=== PATIENT | female | born 1990 | race Caucasian/White ===

== ENCOUNTER 2024-09-10 08:15 | Outpatient (RCR) | payer OTHER, SELFPAY ==
[2024-08-22 10:50] VITALS: BMI 34.1
[2024-09-10 08:15] VITALS: BMI 34.1
== END 2024-11-12 07:54 | disposition home or self-care (01) ==
LOC: ANHDMC 08:15
PROVIDERS: PCP Physician Assistant; Visit Provider Obstetrics & Gynecology
DX: O24.319 Unspecified pre-existing diabetes mellitus in pregnancy, unspecified trimester (principal); Z71.3 Dietary counseling and surveillance
CPT/HCPCS: 97802; 97803

== ENCOUNTER 2024-09-23 10:22 | Outpatient (CLI) | payer OTHER, SELFPAY ==
[2024-09-23] VITALS (53 sets, daily range): BP systolic 135–169; BP diastolic 76–97; PULSE 52–101; RESP 20; TEMP 36.5; O2SAT 90–100; BMI 33.8
--- OUTSIDE RECORDS SUMMARY | 2024-09-23 11:30 | XMS_ITS | Encounter Summary ---
Author Organization [facility] Address [address] [place] [address] Phone Care Team Providers Care Packager Head Name Role Phone GabrielaInes ang MAXIMO Unavailable [phone] Ines Frazier Primary Care Provider + Reason for Visit * Reason Comments Medication Refill Encounter Details Date Type Department Care Team (Late Contact Info) Description 04/27/2023 Refill [facility] - [facility] [address] [place] [address] Florence Jim APRN, METAL FURNITURE PANEL COVERER [address] [address] Medication Refill Social History Tobacco Use Types Packs/Day Years Used Date Smoking Tobacco: Never Smokeless Tobacco: Never Alcohol Use Standard Drinks/Week Comments Yes 0 (1 standard drink = 0.6 oz pur e alcohol) 2-3 times a week PHQ-2 Answer Date Recorded Total Score - Questions 1-9 16 11/2022 Education Answer Date Recorded What is the highest level of school you have completed or the highest degree you have received? 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 Requested Prescriptions Pending Prescriptions Disp Refills FLUoxetine (PROzac) 10 MG Capsule [Pharmacy Med Name: FLUoxetine HCl 10 MG Oral Capsule] 30 [id number] Sig: Take 1 Capsule by mouth daily. SSRI (6 Month Refill Only) Protocol Failed - 04/27/2023 6:33 AM Failed - Patient has established therapy with SSRI for at least 6 months Passed - No test in the past 12 months or most recent test was negative Passed - No active on record Passed - Visit with relevant provider in past 6 months or upcoming 90 days Recent Visits Date Type Provider Dept 04/19/23 Office Visit Izzy Coker APRN, METAL FURNITURE PANEL COVERER [facility] 03/08/23 Office Visit Izzy Coker APRN, METAL FURNITURE PANEL COVERER [facility] Showing recent visits within past 182 days and meeting all other requirements Future Appointments Date Type Provider Dept 06/16/23 Appointment Ines Frazier, PAC [facility] Showing future appointments within next 90 days and meeting all other requirements Passed - Has an encounter in the past 6 months with a depression, anxiety, adjustment disorder, OCD, or PTSD visit diagnosis ING PIT OPERATOR documented in this encounter Plan of Treatment Not on file documented as of this encounter Goals Goal Patient Goal Type Associated Problems Recent Progress Patient-Stated? Author I want to know how to manage all this. Behavioral Health On track( 024 5:10 PM CDT) Yes Brittani Rodriguez LCSW Note: Goal/Objective: Reduce the distress related to trauma being. Anticipated Time Frame for Goal Completion: 6 months Goal Reviewed with: patient Readiness to change: Ready to change Department associated with goal: [facility] Steps to achieve goal: will share personal trauma story in counseling/psychotherapy sessions. will learn/identify how trauma has impacted personal life, physical health and behavioral health. will identify and practice, at least two, skills/activities/routines, to gain relief from the impact of trauma. Will attend individual and/or group therapy at least 1x/month at least 6 sessions documented as of this encounter Visit Diagnoses Diagnosis Depression, unspecified depression type documented in this encounter Additional Health Concerns Assessment Noted Time PHQ-9 Depression Total Score: 16 023 7:00 AM SOAKING PIT OPERATOR documented as of this encounter Care Teams Packager Head Relationship Specialty Start Date End Date Ines Frazier PAC [address] [place] [address] PCP - General Physician Superintendent Construction 05/18/20 Ines Frazier PAC [address] [place] [address] Physician Superintendent Construction Physician Superintendent Construction 05/11/20 documented as of this encounter
--- OUTSIDE RECORDS SUMMARY | 2024-09-23 11:30 | XMS_ITS | Clinical Summary ---
Author Organization [facility] Address [address] [place] [address] Phone Care Team Providers Care Varnish Cooker Name Role Phone Ines Frazier Unavailable [phone] Ines Frazier Primary Care Provider + Allergies No known active allergies Medications scopolamine (TRANSDERM-SCOP ) 1 MG/3DAYS PATCH 72 HR 1 Patch by Transdermal route every 72 hours. 1.5 mg patch delivers 1 mg over 3 days 5 Patch 4 Active valACYclovir (VALTREX) 1 GM Tablet TAKE 1 TABLET BY MOUTH DAILY 100 Tablet 1 5 Active Active Problems Problem Noted Date Diagnosed Date History of posttraumatic stress disorder (PTSD) 04/27/2023 Herpes genitalis 03/14/2023 Anxiety 03/14/2023 Depression 03/14/2023 Family history of colon cancer in mother 021 HSV (herpes simplex virus) anogenital infection 01/06/2019 Immunizations Immunization Administration Dates Next Due Influenza Vaccine 01/19/2016 Influenza Vaccine, Quadrivalent, PF 02/14/2019 TDAP Vaccine 06/01/2021,02/15/2012 Family History Medical History Relation Name Comments ADD / ADHD Brother 1 Eric estranged 4 years and ODD Drug Abuse Brother 1 Eric estranged 4 years ADD / ADHD Brother 2 Vincent (estranged 1 yr) Alcohol Abuse Father Robert Diabetes Father Robert Hypertension Father Robert Liver Disease Father Robert Obstructive Sleep Apnea Father Robert Cancer Maternal Grandfather No Known Problems Maternal Grandmother Alcohol Abuse Mother Tabatha Colon Cancer Mother Tabatha Diabetes Mother Tabatha Liver Disease Mother Tabatha Diabetes Paternal Grandfather Aneurysm Paternal Grandmother Brain Chronic Obstructive Pulmonar y Disease Paternal Grandmother Relation Name Status Comments Brother 1 Eric estranged 4 years Alive Brother 2 Vincent (estranged 1 yr) Alive Father Robert Alive Maternal Grandfather Maternal Grandmother Mother Tabatha Paternal Grandfather Alive Paternal Grandmother Alive Social History Tobacco Use Types Packs/Day Years Used Date Smoking Tobacco: Never Smokeless Tobacco: Never Tobacco Cessation:Counseling Given: No Alcohol Use Standard Drinks/Week Comments Yes 0 (1 standard drink = 0.6 oz pur e alcohol) 2-3 times a week [facility] Utilities Answer Date Recorded In the past 12 months has e electric, gas, oil, or water company threatened to shut off services in your home? Patient declined 06/28/2023 Social Connection and Isolation Panel [NHANES] A nswer Date Recorded In a typical week, how many times do you talk on the phone with family, friends, or neighbors? Patient declined 06/28/2023 How often do you get togethe r with friends or relatives? Patient declined 06/28/2023 How often do you attend religious or nondenominational serv ices? Patient declined 06/28/2023 Do you belong to any clubs o r organizations such as religious groups, unions, fraternal or athletic groups, or school groups? Patient declined 06/28/2023 How often do you attend meet ings of the clubs or organizations you belong to? Patient declined 06/28/2023 Are you , , di vorced, , never , or living with a partner? Patient declined 06/28/2023 AUDIT-C Answer Date Recorded Q1: How often do you have a drink containing alc ohol? Patient declined 06/28/2023 Q2: How many drinks containi ng alcohol do you have on a typical day when you are drinking? Patient declined 06/28/2023 Q3: How often do you have si x or more drinks on one occasion? Patient declined 06/28/2023 Overall Financial Resource Strain (CARDIA) Answe r Date Recorded How hard is it for you to pa y for the very basics like food, housing, medical care, and heating? Patient declined 06/28/2023 PHQ-2 Answer Date Recorded Total Score - Questions 1-9 16 11/0 11/2022 [facility] - Occupational Stress Questionnaire Answer Date Recorded Do you feel stress - tense, restless, nervous, or anxious, or unable to sleep at night because your mind is troubled all the time - these days? Patient declined 06/28/2023 Exercise Vital Sign Answer Date Recorde d On average, how many days pe r week do you engage in moderate to strenuous exercise (like a brisk walk)? Patient declined On average, how many minutes do you engage in exercise at this level? Patient declined 06/28/2023 Hunger Vital Sign Answer Date Recorded Within the past 12 months, y ou worried that your food would run out before you got the money to buy more. Patient declined Within the past 12 months, t he food you bought just didn't last and you didn't have money to get more. Patient declined PRAPARE - Transportation Answer Date Re corded In the past 12 months, has l ack of transportation kept you from medical appointments or from getting medications? Patient declined 06/28/2023 In the past 12 months, has l ack of transportation kept you from meetings, work, or from getting things needed for daily living? Patient declined 06/28/2023 Housing Stability Vital Sign Answer Erik e Recorded In the last 12 months, was t here a time when you were not able to pay the mortgage or rent on time? Patient declined 06/28/19 24 Number of Places Lived in the Last Year Not on f ile 06/28/2023 In the last 12 months, was t here a time when you did not have a steady place to sleep or slept in a jail (including now)? Patient declined 06/28/2023 Education Answer Date Recorded What is the highest level of school you have completed or the highest degree you have received? 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 Not on file Last Filed Vital Signs Vital Sign Reading Time Taken Comments Blood Pressure 134/72 06/28/2023 7:37 AM GORE CUTTER Pulse 51 06/28/2023 7:37 AM GORE CUTTER Temperature 36.7 C (98 F) 06/28/2023 7:37 AM GORE CUTTER Respiratory Rate 16 06/28/2023 7:37 AM GORE CUTTER Oxygen Saturation 98% 06/28/2023 7:37 AM GORE CUTTER Inhaled Oxygen Concentration - - Weight 95.7 kg (210 lb 14.4 oz) 06/28/2023 7:37 AM GORE CUTTER Height 175.3 cm (5' 9 ) 06/28/2023 7:37 AM GORE CUTTER Body Mass Index 31.14 06/28/2023 7:37 AM GORE CUTTER Plan of Treatment Health Maintenance Due Date Last Done Comments Hepatitis C Virus (HCV) Screening 1990 Hepatitis B Immunization (1 of 3 - 19+ 3-dose series) 2009 Influenza Immunization (#1) 2023 02/14/2019, 0 01/19/2016 SARS-COV-2 Immunization ( season) 2023 12/29/2020, 12/01/2020 Pap Smear 11/19/2024 11/19/2021, 06/0 10/2020, 06/06/2019, Additional history exists Cervical Cancer Screening (CCS) 11/19/2026 HPV/Cotest 11/19/2026 11/19/2021, 10/05/2020 Td Immunization Every 10 Years (Adults With 1 Tdap) 06/01/2031 06/01/2021, 02/15/2012 Respiratory Syncytial Virus (RSV) Immunization (Adult) (1 - 1-dose 75+ series) 2065 DTaP/Tdap/Td Immunization Discontinued 06/01/2021, Meningococcal Immunization (ACWY) Aged Out No longer eligible based on patient's age to complete this topic Pneumococcal Immunization Combined Aged Out No longer eligible based on patient's age to complete this topic Rotavirus Immunization Aged Out No lo nger eligible based on patient's age to complete this topic Goals Goal Patient Goal Type Associated Problems Recent Progress Patient-Stated? Author I want to know how to manage all this. Behavioral Health On track( 024 5:10 PM CDT) Yes Brittani Rodriguez, REGISTERED SALES ASSISTANT Note: Goal/Objective: Reduce the distress related to trauma being. Anticipated Time Frame for Goal Completion: 6 months Goal Reviewed with: patient Readiness to change: Ready to change Department associated with goal: [facility] Steps to achieve goal: will share personal trauma story in counseling/psychotherapy sessions. will learn/identify how trauma has impacted personal life, physical health and behavioral health. will identify and practice, at least two, skills/activities/routines, to gain relief from the impact of trauma. Will attend individual and/or group therapy at least 1x/month at least 6 sessions Procedures Procedure Name Priority Date/Time Associated Diagnosis Comments HUMAN PAPILLOMA VIRUS (HPV) Routine 11/19/2021 10:56 AM CDT Well woman exam PATHOLOGY CYTOLOGY FOAM RUBBER FABRICATOR Routine 11/19/2021 10:56 AM CDT Well woman exam from Last 3 Months or Most Recently Relevant to Health Maintenance Results * PATHOLOGY CYTOLOGY FOAM RUBBER FABRICATOR (11/19/2021 10:56 AM CDT) SPECIMEN ADEQUACY Satisfactory for evaluation. Endocervical/transf ormation zone component is present. 11/24/2021 12:36 PM CDT [facility] DESCRIPTIVE DIAGNOSIS NEGATIVE FOR INTRAEPITHELIAL LESIONS OR MALIGNANCY. 11/24/2021 12:36 PM CDT [facility] at 1236 CDT HPV Reflex if ASCUS? No 11/24/2021 12:36 PM CDT [facility] Comment:cotest Automated Examination Analysis of this sample has been assisted by an automated imaging and review system (PASSNFLYprep Imaging System, [employer], [place], [place]). This case is further evaluated and finalized by a utility worker film processing and/or pathologist. 11/24/2021 12:36 PM CDT [facility] Disclaimer The PAP smear is a screening test designed to detect cancerous or precancerous cells of the uterine cervix. It is one of the best means available for detection of cervical cancer but still carries an inherent false-negative rate. The consequences of a false-negative PAP result can be minimized by adhering to current screening guidelines. The following are general guidelines recommended by the ACS, ASCP, ASCCP, and ACOG: PAP testing is recommended every three years for women 21-29, Co-Testing , a PAP test in conjunction with an HPV (Human Papillomavirus) test for women ages 30-65, and no PAP or HPV testing for women under the age of 21 or older than 65 unless clinically indicated. 11/24/2021 12:36 PM CDT [facility] Other CERVIX UTERI STRUCTURE / Unknown Non-Phlebotomy Collection / Unknown 11/19/2021 10:56 AM CDT 11/19/2021 10:56 AM CDT us Ines Frazier PAC PATHOLOGY/CYTOLOGY ORDER GEORGINA Final Result [facility] [address] [place] [address], * HUMAN PAPILLOMA VIRUS (HPV) (11/19/2021 10:56 AM CDT) HPV OTHER HIGH RISK TYPES, PCR NEGATIVE NEGATIVE 11/22/2021 11:51 AM CDT [facility] Comment: The following Other High Risk types were not detected: 31, 33, 35, 39, 45, 51, 52, 56, 58, 59, 66, and 68. A negative high-risk HPV result does not exclude the possibility of future cytologic HSIL or underlying CIN2-3 or cancer. The presence of PCR inhibitors may cause false negative or invalid results. If concentrations of whole blood in the sample exceed 1.5% (dark red or brown coloration) in PreservCyt solution, there is a likelihood of obtaining a false-negative result. HPV TYPE 16 NEGATIVE NEGATIVE 11/22/2021 11:51 AM CDT [facility] Comment: A negative high-risk HPV result does not exclude the possibility of future cytologic HSIL or underlying CIN2-3 or cancer. The presence of PCR inhibitors may cause false negative or invalid results. If concentrations of whole blood in the sample exceed 1.5% (dark red or brown coloration) in PreservCyt solution, there is a likelihood of obtaining a false-negative result. HPV TYPE 18 NEGATIVE NEGATIVE 11/22/2021 11:51 AM CDT [facility] Comment: A negative high-risk HPV result does not exclude the possibility of future cytologic HSIL or underlying CIN2-3 or cancer. The presence of PCR inhibitors may cause false negative or invalid results. If concentrations of whole blood in the sample exceed 1.5% (dark red or brown coloration) in PreservCyt solution, there is a likelihood of obtaining a false-negative result. HPV ORDER BE USED FOR SCREENING OR DIAGNOSTIC SCREENING 11/22/2021 11:51 AM CDT [facility] Other Non-Phlebotomy Collection / Unknown 11/19/2021 10:56 AM CDT 11/19/2021 10:56 AM CDT Narrative [facility] - 11/22/2021 11:51 AM CDT Performed by Real-Time Polymerase Chain Reaction (PCR) on the Janeth Jorge 4800. This assay has been validated for use with post-aliquot samples from the [employer] T[employer] processor. Ines Frazier PAC LAB SEND OUTS Final Re sult [facility] [address] [place] [address], [facility] [address] [place] [address] from Last 3 Months or Most Recently Relevant to Health Maintenance Insurance [facility] Care Teams Varnish Cooker Relationship Specialty Start Date End Date Ines Frazier PAC [address] [place] [address] PCP - General Physician Ui Developer Designer 05/18/20 Ines Frazier PAC [address] [place] [address] Physician Ui Developer Designer Physician Ui Developer Designer 05/11/20
[2024-09-23] MEDS: LABETALOL HCL 100 MG TABLET 200 MG PO (11:42)
--- NOTE | 2024-09-23 12:30 | PC.NURSE ---
This patient was originally on the unit for a scheduled NST due to Gest HTN, GDM, and IVF . 1051- Dr. Tiffany Mitchell was notified of this G1PO pt at 35 wks here with initial BP 162/97 and repeat 158/94. Pt was here 6 days ago and BP was 140/80's and had labs done that were normal. FHT's reactive and no contractions. Order received to discontinue monitoring since reactive and draw PIH labs. Continue to monitor BP's. Called Dr. Tiffany Mitchell back at 1121 after pt had another severe BP of 167/93. Order received to give PO Labetalol. Changed to clinical outpatient status. See NST V# [id number] for lab results. 1230- Dr. Tiffany Mitchell returned page and informed that pt was given the Labetalol at 1142 and she had taken Tylenol on her own, BP's stayed severe until the 1215 BP of 146/87. Pt abruptly became nauseated with and had an emesis at 1228- her Tylenol was visible in the emesis. Labetalol wasn't seen, but she had 150 ml liquid. Nausea resolved immediately after emesis. informed of lab results. To update MD later with additional BP's.
--- NOTE | 2024-09-23 12:35 | PC.NURSE ---
Pt's lunch tray here. Denies nausea. Pt sitting to eat.
--- NOTE | 2024-09-23 12:55 | PC.NURSE ---
Entered room to restart BP's, but pt is standing at bedside.
--- NOTE | 2024-09-23 13:02 | PC.NURSE ---
Transferred to room 116 per wheelchair with personal belongings.
--- NOTE | 2024-09-23 13:10 | PC.NURSE ---
Restarted BP since pt has been resting 5 mins now.
--- NOTE | 2024-09-23 13:15 | PC.NURSE ---
Pt up and voided. 24 hr urine collection explained to pt and started in case MD wants.
--- NOTE | 2024-09-23 13:20 | OBADM ---
This patient, Bita Canchola, admitted to the OB room OB Post 116 for observation. Patient/family oriented to hospital policies and general routines including ID bracelet, bed and alarms, visiting hours, pain management, procedures, bathroom and other care routines, personal items, smoking policy, room service/diet, and visiting hours. Patient/Family are encouraged to report perceived risks to care and to ask questions if they do not understand what they are told or what they should do.
[2024-09-23 14:07] LABS: Glucose Point of Care 106 mg/dl (65-105)
--- NOTE | 2024-09-23 15:42 | PC.NURSE ---
Dr. Tiffany Mitchell returned page and updated on BP's. Headache resolved. Order for discharge received. Pt to continue 24 hr urine. puppet maker prescription for Labetalol 200 mg by mouth every 12 hrs- take next dose tonight. Keep scheduled appointment with Dr. Márquez tomorrow.
--- NOTE | 2024-09-23 16:19 | PC.NURSE ---
Dr. Tiffany Mitchell informed I had given pt her discharge instructions and when she sat on the side of the bed to leave c/o quick onset nausea. BP rechecked and received 157/94 waited a few minutes and repeated 157/89. Checked bedside glucose- 82. Nausea has decreased to stomach feeling queezy . Order received to give a dose of ODT Zofran and can send RX for Zofran and then discharge pt to home.
[2024-09-23] MEDS: ONDANSETRON HCL ODT 4 MG TABLET PO (16:34)
--- NOTE | 2024-09-23 16:40 | PC.NURSE ---
Offered pt to stay and make sure the nausea goes away. Pt declines, states the nausea is gone and she would really just like to go home. States she gets nauseated pretty easily normally. When I asked her if she has had a lot of nausea with the , she said not really.
[2024-09-23 16:42] LABS: Glucose Point of Care 82 mg/dl (65-105)
== END 2024-09-23 16:42 | disposition home or self-care (01) ==
LOC: ANHOBOP 11:34 → ANHLDR 11:34 → ANHOBPP 12:58
PROVIDERS: PCP Physician Assistant; Visit Provider Obstetrics & Gynecology
DX: O13.9 Gestational [pregnancy-induced] hypertension without significant proteinuria, unspecified trimester (principal); Z3A.00 Weeks of gestation of pregnancy not specified
CPT/HCPCS: 59025; 82948; 99199; A9270

== ENCOUNTER 2024-09-24 14:34 | Outpatient (NON) | payer OTHER, SELFPAY ==
--- OUTSIDE RECORDS SUMMARY | 2024-09-24 15:12 | XMS_ITS | Clinical Summary ---
Author Organization [facility] CALL [facility] ENTER Address [address] [place] [address] Phone Care Team Providers Care Fiber Technologist Name Role Phone Ines Frazier Unavailable [phone] Ines Frazier Primary Care Provider + Allergies [...] pur e alcohol) 2-3 times a week [facility] Utilities Answer Date Recorded In the [...] declined 06/28/2023 How often do you attend orthodoxy or jainism serv ices? Patient declined 06/28/2023 Do you belong to any clubs o r organizations such as orthodoxy groups, unions, fraternal or athletic groups, or [...] Score - Questions 1-9 16 11/0 11/2022 [facility] of Occupat ional [facility] - Occupational Stress Questionnaire Answer Date Recorded [...] place to sleep or slept in a usp (including now)? Patient declined 06/28/2023 Education Answer Date Recorded What is the highest level of school you have completed or the highest degree you have received? 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 Not on file Last Filed Vital Signs Vital Sign Reading Time Taken Comments Blood Pressure 134/72 06/28/2023 7:37 AM REWINDER Pulse 51 06/28/2023 7:37 AM REWINDER Temperature 36.7 C (98 F) 06/28/2023 7:37 AM REWINDER Respiratory Rate 16 06/28/2023 7:37 AM REWINDER Oxygen Saturation 98% 06/28/2023 7:37 AM REWINDER Inhaled Oxygen Concentration - - Weight 95.7 kg (210 lb 14.4 oz) 06/28/2023 7:37 AM REWINDER Height 175.3 cm (5' 9) 06/28/2023 7:37 AM REWINDER Body Mass Index 31.14 06/28/2023 7:37 AM REWINDER Plan of Treatment Health Maintenance Due Date [...] 024 5:10 PM CDT) Yes Brittani Rodriguez, PRINT GRAPHIC DESIGNER Note: Goal/Objective: Reduce the distress related to trauma being. Anticipated Time Frame for Goal Completion: 6 months Goal Reviewed with: patient Readiness to change: Ready to change Department associated with goal: [facility] Steps to achieve goal: [...] AM CDT Well woman exam PATHOLOGY CYTOLOGY RISK LEAD Routine 11/19/2021 10:56 AM CDT Well woman exam from Last 3 Months or Most Recently Relevant to Health Maintenance Results * PATHOLOGY CYTOLOGY RISK LEAD (11/19/2021 10:56 AM CDT) SPECIMEN ADEQUACY Satisfactory for evaluation. Endocervical/transf ormation zone component is present. 11/24/2021 12:36 PM CDT [facility] DESCRIPTIVE DIAGNOSIS NEGATIVE FOR INTRAEPITHELIAL LESIONS OR MALIGNANCY. 11/24/2021 12:36 PM CDT [facility] at 1236 CDT HPV Reflex if ASCUS? No 11/24/2021 12:36 PM CDT [facility] Comment:cotest Automated Examination Analysis of this sample has been assisted by an automated imaging and review system (Universal Adprep Imaging System, [employer], [place], [place]). This case is further evaluated and finalized by a post acute care nurse practitioner and/or pathologist. 11/24/2021 12:36 PM CDT [facility] Disclaimer The PAP smear is a [...] recommended every three years for women 21-29, Co-Testing, a PAP test in conjunction with an HPV (Human Papillomavirus) test for women ages 30-65, and no PAP or HPV testing for women under the age of 21 or older than 65 unless clinically indicated. 11/24/2021 12:36 PM CDT [facility] Other CERVIX UTERI STRUCTURE / Unknown Non-Phlebotomy Collection / Unknown 11/19/2021 10:56 AM CDT 11/19/2021 10:56 AM CDT us Ines Frazier PAC PATHOLOGY/CYTOLOGY ORDER GEORGINA Final Result [facility] [address] [place] [address], * HUMAN PAPILLOMA VIRUS (HPV) (11/19/2021 10:56 AM CDT) HPV OTHER HIGH RISK TYPES, PCR NEGATIVE NEGATIVE 11/22/2021 11:51 AM CDT [facility] Comment: The following Other High Risk [...] 16 NEGATIVE NEGATIVE 11/22/2021 11:51 AM CDT [facility] Comment: A negative high-risk HPV result [...] 18 NEGATIVE NEGATIVE 11/22/2021 11:51 AM CDT [facility] Comment: A negative high-risk HPV result [...] OR DIAGNOSTIC SCREENING 11/22/2021 11:51 AM CDT [facility] Other Non-Phlebotomy Collection / Unknown 11/19/2021 10:56 AM CDT 11/19/2021 10:56 AM CDT Narrative [facility] - 11/22/2021 11:51 AM CDT Performed by Real-Time Polymerase Chain Reaction (PCR) on the Janeth Jorge 4800. This assay has been validated for use with post-aliquot samples from the [employer] T5000 processor. Ines Frazier PAC LAB SEND OUTS Final Re sult [facility] [address] [place] [address], [facility] [address] [place] [address] from Last 3 Months or Most Recently Relevant to Health Maintenance Insurance [facility] Care Teams Fiber Technologist Relationship Specialty Start Date End Date Ines Frazier PAC [address] [place] [address] PCP - General Physician Traveling Auditor 05/18/20 Ines Frazier PAC [address] [place] [address] Physician Traveling Auditor Physician Traveling Auditor 05/11/20
--- OUTSIDE RECORDS SUMMARY | 2024-09-24 15:12 | XMS_ITS | Encounter Summary ---
Author Organization [facility] Address [address] [place] [address] Phone Care Team Providers Care Oracle Financials Consultant Name Role Phone GabrielaInes ang MAXIMO Unavailable [phone] Ines Frazier Primary Care Provider + Reason for Visit * Reason Comments Medication Refill Encounter Details Date Type Department Care Team (Late Contact Info) Description 04/27/2023 [facility]ill [facility] [address] [place] [address] Florence Jim APRN, HOT ROLLER [address] [address] Medication Refill Social History Tobacco [...] on file Legal Sex Female 9:26 AM SWABBER Gender Identity Not on file Sexual Orientation Not on file 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 Requested Prescriptions Pending Prescriptions Disp Refills FLUoxetine (PROzac) 10 MG Capsule [Pharmacy Med Name: FLUoxetine HCl 10 MG Oral Capsule] 30 [id number] Sig: Take 1 Capsule by mouth daily. [...] Dept 04/19/23 Office Visit Izzy Coker APRN, HOT ROLLER [facility] 03/08/23 Office Visit Izzy Coker APRN, HOT ROLLER [facility] Showing recent visits within past 182 days and meeting all other requirements Future Appointments Date Type Provider Dept 06/16/23 Appointment Ines Frazier, PAC [facility] Showing future appointments within next 90 days and meeting all other requirements Passed - Has an encounter in the past 6 months with a depression, anxiety, adjustment disorder, OCD, or PTSD visit diagnosis BER documented in this encounter Plan of Treatment [...] Ready to change Department associated with goal: [facility] Steps to achieve goal: [...] Depression Total Score: 16 023 7:00 AM SWABBER documented as of this encounter Care Teams Oracle Financials Consultant Relationship Specialty Start Date End Date Ines Frazier PAC [address] [place] [address] PCP - General Physician Voice Network Administrator 05/18/20 Ines Frazier PAC [address] [place] [address] Physician Voice Network Administrator Physician Voice Network Administrator 05/11/20 documented as of this encounter
[2024-09-24 16:15] LABS: Total Volume 24 Hour Urine 1400 ml
[2024-09-24 16:56] LABS: Total Protein Urine 24 Hr 350 mg/24hr (28-141); Total Protein Urine Random 25 mg/dL
[2024-09-24 16:57] LABS: Creatinine 24 Hour Urine 1.8 gm/24 (0.8-1.8); Creatinine Urine 135.5 mg/dL
== END 2024-09-24 14:35 | disposition home or self-care (01) ==
LOC: ANHOBOP 15:10
PROVIDERS: PCP Physician Assistant; Visit Provider Obstetrics & Gynecology
DX: O14.90 Unspecified pre-eclampsia, unspecified trimester (principal); Z3A.00 Weeks of gestation of pregnancy not specified
CPT/HCPCS: 81050; 82570; 84156

== ENCOUNTER 2024-09-26 20:21 | Outpatient (CLI) | payer OTHER, SELFPAY ==
[2024-09-26] VITALS (15 sets, daily range): BP systolic 120–138; BP diastolic 62–76; PULSE 57–68; O2SAT 96–98; BMI 33.8
--- OUTSIDE RECORDS SUMMARY | 2024-09-26 20:28 | XMS_ITS | Clinical Summary ---
Author Organization [facility] CALL C ENTER Address [address] [place] [address] Phone Care Team Providers Care Production Operations Manager Name Role Phone Ines Frazier Unavailable [phone] Ines Frazier Primary Care Provider + Allergies [...] pur e alcohol) 2-3 times a week [facility] Utilities Answer Date Recorded In the past [...] declined 06/28/2023 How often do you attend buddhism or islam serv ices? Patient declined 06/28/2023 Do you belong to any clubs o r organizations such as buddhism groups, unions, fraternal or athletic groups, or [...] Score - Questions 1-9 16 11/0 11/2022 [facility] of Occupat ional [facility] - Occupational Stress Questionnaire Answer Date Recorded [...] place to sleep or slept in a long-term (including now)? Patient declined 06/28/2023 Education Answer Date Recorded What is the highest level of school you have completed or the highest degree you have received? 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 Last Filed Vital Signs Vital Sign Reading Time Taken Comments Blood Pressure 134/72 06/28/2023 7:37 AM FILLER BLENDER Pulse 51 06/28/2023 7:37 AM FILLER BLENDER Temperature 36.7 C (98 F) 06/28/2023 7:37 AM FILLER BLENDER Respiratory Rate 16 06/28/2023 7:37 AM FILLER BLENDER Oxygen Saturation 98% 06/28/2023 7:37 AM FILLER BLENDER Inhaled Oxygen Concentration - - Weight 95.7 kg (210 lb 14.4 oz) 06/28/2023 7:37 AM FILLER BLENDER Height 175.3 cm (5' 9) 06/28/2023 7:37 AM FILLER BLENDER Body Mass Index 31.14 06/28/2023 7:37 AM FILLER BLENDER Plan of Treatment Health Maintenance Due Date [...] 024 5:10 PM CDT) Yes Brittani Rodriguez, AWNING MAKER Note: Goal/Objective: Reduce the distress related to trauma being. Anticipated Time Frame for Goal Completion: 6 months Goal Reviewed with: patient Readiness to change: Ready to change Department associated with goal: [facility] Steps to achieve goal: [...] AM CDT Well woman exam PATHOLOGY CYTOLOGY LEARNING SUPPORT RESOURCE ROOM TEACHER Routine 11/19/2021 10:56 AM CDT Well woman exam from Last 3 Months or Most Recently Relevant to Health Maintenance Results * PATHOLOGY CYTOLOGY LEARNING SUPPORT RESOURCE ROOM TEACHER (11/19/2021 10:56 AM CDT) SPECIMEN ADEQUACY Satisfactory for evaluation. Endocervical/transf ormation zone component is present. 11/24/2021 12:36 PM CDT [facility] DESCRIPTIVE DIAGNOSIS NEGATIVE FOR INTRAEPITHELIAL LESIONS OR MALIGNANCY. 11/24/2021 12:36 PM CDT [facility] at 1236 CDT HPV Reflex if ASCUS? No 11/24/2021 12:36 PM CDT [facility] Comment:cotest Automated Examination Analysis of this sample has been assisted by an automated imaging and review system ([employer] Imaging System, [employer], [place], [place]). This case is further evaluated and finalized by a red cross worker and/or pathologist. 11/24/2021 12:36 PM CDT [facility] Disclaimer The PAP smear is a screening [...] unless clinically indicated. 11/24/2021 12:36 PM CDT [facility] Other CERVIX UTERI STRUCTURE / Unknown Non-Phlebotomy Collection / Unknown 11/19/2021 10:56 AM CDT 11/19/2021 10:56 AM CDT us Ines Frazier PAC PATHOLOGY/CYTOLOGY ORDER GEORGINA Final Result [facility] [address] [place] [address], * HUMAN PAPILLOMA VIRUS (HPV) (11/19/2021 10:56 AM CDT) HPV OTHER HIGH RISK TYPES, PCR NEGATIVE NEGATIVE 11/22/2021 11:51 AM CDT [facility] Comment: The following Other High Risk types [...] 16 NEGATIVE NEGATIVE 11/22/2021 11:51 AM CDT [facility] Comment: A negative high-risk HPV result does [...] 18 NEGATIVE NEGATIVE 11/22/2021 11:51 AM CDT [facility] Comment: A negative high-risk HPV result does [...] OR DIAGNOSTIC SCREENING 11/22/2021 11:51 AM CDT [facility] Other Non-Phlebotomy Collection / Unknown 11/19/2021 10:56 AM CDT 11/19/2021 10:56 AM CDT Narrative [facility] - 11/22/2021 11:51 AM CDT Performed by Real-Time Polymerase Chain Reaction (PCR) on the Janeth Jorge 4800. This assay has been validated for use with post-aliquot samples from the [employer] T5000 processor. Ines Frazier PAC LAB SEND OUTS Final Re sult [facility] [address] [place] [address], [facility] [address] [place] [address] from Last 3 Months or Most Recently Relevant to Health Maintenance Insurance [facility] Care Teams Production Operations Manager Relationship Specialty Start Date End Date Ines Frazier PAC [address] [place] [address] PCP - General Physician Obiee Lead Developer 05/18/20 Ines Frazier PAC [address] [place] [address] Physician Obiee Lead Developer Physician Obiee Lead Developer 05/11/20
--- OUTSIDE RECORDS SUMMARY | 2024-09-26 20:28 | XMS_ITS | Encounter Summary ---
Author Organization [facility] Address [address] [place] [address] Phone Care Team Providers Care Polyethylene Combiner Name Role Phone GabrielaInes ang MAXIMO Unavailable [phone] Ines Frazier Primary Care Provider + Reason for Visit * Reason Comments Medication Refill Encounter Details Date Type Department Care Team (Late Contact Info) Description 04/27/2023 Refill [facility] [address] [place] [address] Florence Jim APRN, CORE RESCUER [address] [address] Medication Refill Social History Tobacco [...] on file Legal Sex Female 9:26 AM INSURANCE CLAIMS REPRESENTATIVE Gender Identity Not on file Sexual Orientation Not on file 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 Requested Prescriptions Pending Prescriptions Disp Refills FLUoxetine (PROzac) 10 MG Capsule [Pharmacy Med Name: FLUoxetine HCl 10 MG Oral Capsule] 30 [id number] Sig: Take 1 Capsule by mouth daily. [...] Dept 04/19/23 Office Visit Izzy Coker APRN, CORE RESCUER [facility] 03/08/23 Office Visit Izzy Coker APRN, CORE RESCUER [facility] Showing recent visits within past 182 days and meeting all other requirements Future Appointments Date Type Provider Dept 06/16/23 Appointment Ines Frazier, PAC [facility] Showing future appointments within next 90 days and meeting all other requirements Passed - Has an encounter in the past 6 months with a depression, anxiety, adjustment disorder, OCD, or PTSD visit diagnosis RANCE CLAIMS REPRESENTATIVE documented in this encounter Plan of Treatment [...] Ready to change Department associated with goal: [facility] Steps to achieve goal: [...] Depression Total Score: 16 023 7:00 AM INSURANCE CLAIMS REPRESENTATIVE documented as of this encounter Care Teams Polyethylene Combiner Relationship Specialty Start Date End Date Ines Frazier PAC [address] [place] [address] PCP - General Physician Online Marketing Specialist 05/18/20 Ines Frazier PAC [address] [place] [address] Physician Online Marketing Specialist Physician Online Marketing Specialist 05/11/20 documented as of this encounter
[2024-09-26 20:50] LABS: Basophils Percent Auto 0.1 % (0.2-1.2); Eosinophils Absolute Auto 0.1 K/mm3 (0-0.3); Eosinophils Percent Auto 1.6 % (0-4.4); Hematocrit 30.6 % (37.0-47.0); Hemoglobin 10.6 g/dL (12.0-15.0); Immature Granulocyte Absolute 0.04 K/mm3 (0.00-0.031); Immature Granulocyte Percent A 0.5 % (0-0.5); Lymphocytes Percent Auto 20.9 % (18.3-44.2); Mean Corpuscular HGB Conc 34.6 g/dl (32-36); Mean Corpuscular Hemoglobin 31.8 pg (26-34); Mean Corpuscular Volume 91.9 fl (80-100); Mean Platelet Volume 10.6 fl (7.4-10.4); Monocytes Absolute Auto 0.6 K/mm3 (0.1-0.6); Monocytes Percent Auto 7.3 % (2.6-8.5); Neutrophils Absolute Auto 5.3 K/mm3 (1.3-6.7); Neutrophils Percent Auto 69.6 % (45.5-73.1); Platelet Count Result 180 k/mm3 (150-375); Red Blood Count 3.33 M/mm3 (4.2-5.4); Red Cell Distribution Width 12.8 % (11.5-14.5); White Blood Count 7.7 K/mm3 (4.5-10.0)
[2024-09-26 21:05] LABS: Add Urine Microscopic? YES; Appearance Urine Cloudy (Clear); Bacteria Urine 2+ /hpf; Bilirubin Urine Negative (Negative); Blood Urine Negative (Negative); Calcium Oxalate Crystals Urine Present /hpf; Color Urine Yellow (Yellow); Glucose Urine UA Negative (Negative); Ketones Urine Trace mg/dL (Negative); Leukocyte Esterase Ur Negative LEU/UL (Negative); Nitrate Urine Negative (Negative); Non Pathogenic Casts 0-2; Protein Urine 1+ mg/dL (Negative); RBC Urine 0-2 /hpf (0-2); Specific Grav Ur 1.031 (1.001-1.035); Squamous Epithelial Cell Urine Occasional /hpf (Few); pH Urine 5.5 (5.0-9.0)
[2024-09-26 21:15] LABS: Alanine Aminotransferase 19 U/L (6-35); Albumin Level 3.6 g/dL (3.5-5.1); Alkaline Phosphatase 99 U/L (38-126); Anion Gap 6 mmol/L (4-12); Aspartate Amino Transferase 24 U/L (14-36); Bilirubin,Total 0.4 mg/dL (0.2-1.3); Blood Urea Nitrogen 13 mg/dL (7-17); Calcium 9.6 mg/dL (8.4-10.2); Carbon Dioxide 22 mmol/L (22-30); Chloride 107 mmol/L (98-107); Estimated CRCL calculation 161 ml/min; Estimated Glomerular Filt Rate > 60; Glucose 102 mg/dL (65-110); Potassium 3.6 mmol/L (3.4-5.0); Sodium 135 mmol/L (137-145)
[2024-09-26 21:37] LABS: Creatinine Urine 249.9 mg/dL; Total Protein Urine Random 42 mg/dL; Ur Ttl Prot Creatinine Ratio 0.17 mg/mg (0-0.20)
== END 2024-09-26 21:37 | disposition home or self-care (01) ==
LOC: ANHOBOP 20:26 → ANHOBPP 20:28
PROVIDERS: PCP Physician Assistant; Visit Provider Obstetrics & Gynecology
DX: O13.9 Gestational [pregnancy-induced] hypertension without significant proteinuria, unspecified trimester (principal); Z3A.00 Weeks of gestation of pregnancy not specified
CPT/HCPCS: 36415; 59025; 80053; 81001; 82570; 84156; 84550; 85025; 87086; 99199

== ENCOUNTER 2024-09-29 19:46 | Outpatient (CLI) | payer OTHER, SELFPAY ==
--- OUTSIDE RECORDS SUMMARY | 2024-09-29 19:53 | XMS_ITS | Encounter Summary ---
Author Organization [facility] Address [address] [place] [address] Phone Care Team Providers Care Coil Binder Name Role Phone GabrielaInes ang MAXIMO Unavailable [phone] Ines Frazier Primary Care Provider + Reason for Visit * Reason Comments Medication Refill Encounter Details Date Type Department Care Team (Late Contact Info) Description 04/27/2023 Refill [facility] [address] [place] [address] Florence Jim APRN, COMMERCIAL FISHER [address] [address] Medication Refill Social History Tobacco [...] on file Legal Sex Female 9:26 AM KIER OPERATOR Gender Identity Not on file Sexual Orientation Not on file 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 Requested Prescriptions Pending Prescriptions Disp Refills FLUoxetine (PROzac) 10 MG Capsule [Pharmacy Med Name: FLUoxetine HCl 10 MG Oral Capsule] 30 [id number] Sig: Take 1 Capsule by mouth daily. [...] Dept 04/19/23 Office Visit Izzy Coker APRN, COMMERCIAL FISHER [facility] 03/08/23 Office Visit Izzy Coker APRN, COMMERCIAL FISHER [facility] Showing recent visits within past 182 days and meeting all other requirements Future Appointments Date Type Provider Dept 06/16/23 Appointment Ines Frazier, PAC [facility] Showing future appointments within next 90 days and meeting all other requirements Passed - Has an encounter in the past 6 months with a depression, anxiety, adjustment disorder, OCD, or PTSD visit diagnosis OPERATOR documented in this encounter Plan of [...] Ready to change Department associated with goal: [facility] Steps to achieve goal: [...] Depression Total Score: 16 023 7:00 AM KIER OPERATOR documented as of this encounter Care Teams Coil Binder Relationship Specialty Start Date End Date Ines Frazier PAC [address] [place] [address] PCP - General Physician Fabric Designer 05/18/20 Ines Frazier PAC [address] [place] [address] Physician Fabric Designer Physician Fabric Designer 05/11/20 documented as of this encounter
--- OUTSIDE RECORDS SUMMARY | 2024-09-29 19:54 | XMS_ITS | Clinical Summary ---
Author Organization [facility] CALL C ENTER Address [address] [place] [address] Phone Care Team Providers Care Tailor Garment Fitter Name Role Phone Ines Frazier Unavailable [phone] Ines Frazier Primary Care Provider + Allergies [...] pur e alcohol) 2-3 times a week [facility] Utilities Answer Date Recorded In the past [...] declined 06/28/2023 How often do you attend buddhist or hinduism serv ices? Patient declined 06/28/2023 Do you belong to any clubs o r organizations such as buddhist groups, unions, fraternal or athletic groups, or [...] Score - Questions 1-9 16 11/0 11/2022 [facility] of Occupat ional [facility] - Occupational Stress Questionnaire Answer Date [...] place to sleep or slept in a long term (including now)? Patient declined 06/28/2023 Education Answer Date Recorded What is the highest level of school you have completed or the highest degree you have received? 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 Last Filed Vital Signs Vital Sign Reading Time Taken Comments Blood Pressure 134/72 06/28/2023 7:37 AM PATIENT RESOURCE COORDINATOR Pulse 51 06/28/2023 7:37 AM PATIENT RESOURCE COORDINATOR Temperature 36.7 C (98 F) 06/28/2023 7:37 AM PATIENT RESOURCE COORDINATOR Respiratory Rate 16 06/28/2023 7:37 AM PATIENT RESOURCE COORDINATOR Oxygen Saturation 98% 06/28/2023 7:37 AM PATIENT RESOURCE COORDINATOR Inhaled Oxygen Concentration - - Weight 95.7 kg (210 lb 14.4 oz) 06/28/2023 7:37 AM PATIENT RESOURCE COORDINATOR Height 175.3 cm (5' 9) 06/28/2023 7:37 AM PATIENT RESOURCE COORDINATOR Body Mass Index 31.14 06/28/2023 7:37 AM PATIENT RESOURCE COORDINATOR Plan of Treatment Health Maintenance Due Date [...] 024 5:10 PM CDT) Yes Brittani Rodriguez, COMMUNITY SERVICE SPECIALIST Note: Goal/Objective: Reduce the distress related to trauma being. Anticipated Time Frame for Goal Completion: 6 months Goal Reviewed with: patient Readiness to change: Ready to change Department associated with goal: [facility] Steps [...] AM CDT Well woman exam PATHOLOGY CYTOLOGY SAMPLE PATTERNMAKER Routine 11/19/2021 10:56 AM CDT Well woman exam from Last 3 Months or Most Recently Relevant to Health Maintenance Results * PATHOLOGY CYTOLOGY SAMPLE PATTERNMAKER (11/19/2021 10:56 AM CDT) SPECIMEN ADEQUACY Satisfactory for evaluation. Endocervical/transf ormation zone component is present. 11/24/2021 12:36 PM CDT [facility] DESCRIPTIVE DIAGNOSIS NEGATIVE FOR INTRAEPITHELIAL LESIONS OR MALIGNANCY. 11/24/2021 12:36 PM CDT [facility] at 1236 CDT HPV Reflex if ASCUS? No 11/24/2021 12:36 PM CDT [facility] Comment:cotest Automated Examination Analysis of this sample has been assisted by an automated imaging and review system ([employer] Imaging System, [employer], [place], [place]). This case is further evaluated and finalized by a salad bar clerk and/or pathologist. 11/24/2021 12:36 PM CDT [facility] Disclaimer The PAP smear is a [...] unless clinically indicated. 11/24/2021 12:36 PM CDT [facility] Other CERVIX UTERI STRUCTURE / Unknown Non-Phlebotomy Collection / Unknown 11/19/2021 10:56 AM CDT 11/19/2021 10:56 AM CDT us Ines Frazier PAC PATHOLOGY/CYTOLOGY ORDER GEORGINA Final Result [facility] [address] [place] [address], * HUMAN PAPILLOMA VIRUS (HPV) (11/19/2021 10:56 AM CDT) HPV OTHER HIGH RISK TYPES, PCR NEGATIVE NEGATIVE 11/22/2021 11:51 AM CDT [facility] Comment: The following Other High Risk [...] 16 NEGATIVE NEGATIVE 11/22/2021 11:51 AM CDT [facility] Comment: A negative high-risk HPV result [...] 18 NEGATIVE NEGATIVE 11/22/2021 11:51 AM CDT [facility] Comment: A negative high-risk HPV result [...] OR DIAGNOSTIC SCREENING 11/22/2021 11:51 AM CDT [facility] Other Non-Phlebotomy Collection / Unknown 11/19/2021 10:56 AM CDT 11/19/2021 10:56 AM CDT Narrative [facility] - 11/22/2021 11:51 AM CDT Performed by Real-Time Polymerase Chain Reaction (PCR) on the Janeth Jorge 4800. This assay has been validated for use with post-aliquot samples from the [employer] T5000 processor. Ines Frazier PAC LAB SEND OUTS Final Re sult [facility] [address] [place] [address], [facility] [address] [place] [address] from Last 3 Months or Most Recently Relevant to Health Maintenance Insurance [facility] Care Teams Tailor Garment Fitter Relationship Specialty Start Date End Date Ines Frazier PAC [address] [place] [address] PCP - General Physician Digital Marketing Coordinator 05/18/20 Ines Frazier PAC [address] [place] [address] Physician Digital Marketing Coordinator Physician Digital Marketing Coordinator 05/11/20
[2024-09-29 20:17] VITALS: BMI 35.8
[2024-09-29 20:30] LABS: Basophils Percent Auto 0.3 % (0.2-1.2); Eosinophils Absolute Auto 0.1 K/mm3 (0-0.3); Eosinophils Percent Auto 1.7 % (0-4.4); Hematocrit 29.4 % (37.0-47.0); Hemoglobin 10.3 g/dL (12.0-15.0); Immature Granulocyte Absolute 0.03 K/mm3 (0.00-0.031); Immature Granulocyte Percent A 0.4 % (0-0.5); Lymphocytes Absolute Auto 1.53 K/mm3 (0.9-3.2); Lymphocytes Percent Auto 22.2 % (18.3-44.2); Mean Corpuscular Volume 91.3 fl (80-100); Mean Platelet Volume 10.8 fl (7.4-10.4); Monocytes Absolute Auto 0.6 K/mm3 (0.1-0.6); Neutrophils Absolute Auto 4.6 K/mm3 (1.3-6.7); Neutrophils Percent Auto 67.4 % (45.5-73.1); Platelet Count Result 175 k/mm3 (150-375); Red Blood Count 3.22 M/mm3 (4.2-5.4); Red Cell Distribution Width 12.7 % (11.5-14.5); White Blood Count 6.9 K/mm3 (4.5-10.0)
[2024-09-29 20:31] VITALS: BP 148/83; PULSE 52
[2024-09-29 20:32] LABS: Add Urine Microscopic? NO; Appearance Urine Clear (Clear); Bilirubin Urine Negative (Negative); Blood Urine Negative (Negative); Color Urine Yellow (Yellow); Glucose Urine UA Negative (Negative); Ketones Urine Negative (Negative); Leukocyte Esterase Ur Negative LEU/UL (Negative); Nitrate Urine Negative (Negative); Protein Urine Negative (Negative); Urobilinogen Urine 0.2 mg/dL (<2.0); pH Urine 6.5 (5.0-9.0)
[2024-09-29 20:40] LABS: Alanine Aminotransferase 17 U/L (6-35); Albumin Level 3.5 g/dL (3.5-5.1); Alkaline Phosphatase 99 U/L (38-126); Anion Gap 6 mmol/L (4-12); Aspartate Amino Transferase 24 U/L (14-36); Bilirubin,Total 0.4 mg/dL (0.2-1.3); Blood Urea Nitrogen 10 mg/dL (7-17); Calcium 9.5 mg/dL (8.4-10.2); Carbon Dioxide 21 mmol/L (22-30); Chloride 109 mmol/L (98-107); Estimated CRCL calculation 172 ml/min; Estimated Glomerular Filt Rate > 60; Glucose 87 mg/dL (65-110); Potassium 3.5 mmol/L (3.4-5.0); Sodium 136 mmol/L (137-145); Uric Acid 3.6 mg/dL (2.5-7.5)
[2024-09-29 20:46] VITALS: BP 157/87; PULSE 56
[2024-09-29 21:01] VITALS: BP 157/81; PULSE 57
[2024-09-29 21:11] LABS: Creatinine Urine 48.6 mg/dL; Total Protein Urine Random 28 mg/dL; Ur Ttl Prot Creatinine Ratio 0.58 mg/mg (0-0.20)
[2024-09-29 21:16] VITALS: BP 157/79; PULSE 56
[2024-09-29 21:31] VITALS: BP 154/80; PULSE 57
== END 2024-09-29 21:45 | disposition home or self-care (01) ==
LOC: ANHOBOP 19:52 → ANHOBPP 19:59
PROVIDERS: PCP Physician Assistant; Visit Provider Obstetrics & Gynecology
DX: O13.9 Gestational [pregnancy-induced] hypertension without significant proteinuria, unspecified trimester (principal); Z3A.00 Weeks of gestation of pregnancy not specified
CPT/HCPCS: 36415; 59025; 80053; 81003; 82570; 84156; 84550; 85025; 99199

== ENCOUNTER 2024-09-30 11:34 | Outpatient (RCR) | payer OTHER, SELFPAY ==
[2024-09-06 09:32] VITALS: BP 137/77; PULSE 68
[2024-09-10 10:55] VITALS: BP 132/71; PULSE 79
[2024-09-17 09:52] LABS: Basophils Percent Auto 0.2 % (0.2-1.2); Eosinophils Absolute Auto 0.1 K/mm3 (0-0.3); Eosinophils Percent Auto 1.8 % (0-4.4); Hemoglobin 11.3 g/dL (12.0-15.0); Immature Granulocyte Absolute 0.04 K/mm3 (0.00-0.031); Immature Granulocyte Percent A 0.7 % (0-0.5); Lymphocytes Percent Auto 19.6 % (18.3-44.2); Mean Corpuscular HGB Conc 35.3 g/dl (32-36); Mean Corpuscular Hemoglobin 32.3 pg (26-34); Mean Corpuscular Volume 91.4 fl (80-100); Mean Platelet Volume 10.4 fl (7.4-10.4); Monocytes Absolute Auto 0.3 K/mm3 (0.1-0.6); Monocytes Percent Auto 5.5 % (2.6-8.5); Neutrophils Absolute Auto 4.1 K/mm3 (1.3-6.7); Neutrophils Percent Auto 72.2 % (45.5-73.1); Platelet Count Result 155 k/mm3 (150-375); Red Cell Distribution Width 13.3 % (11.5-14.5); White Blood Count 5.6 K/mm3 (4.5-10.0)
[2024-09-17 09:54] LABS: Add Urine Microscopic? NO; Appearance Urine Clear (Clear); Bilirubin Urine Negative (Negative); Blood Urine Negative (Negative); Color Urine Yellow (Yellow); Glucose Urine UA Negative (Negative); Ketones Urine Negative (Negative); Leukocyte Esterase Ur Negative LEU/UL (Negative); Nitrate Urine Negative (Negative); Protein Urine Negative (Negative); Specific Grav Ur 1.014 (1.001-1.035)
[2024-09-17 10:01] LABS: Alanine Aminotransferase 24 U/L (6-35); Albumin Level 3.5 g/dL (3.5-5.1); Alkaline Phosphatase 107 U/L (38-126); Anion Gap 6 mmol/L (4-12); Aspartate Amino Transferase 30 U/L (14-36); Bilirubin,Total 0.4 mg/dL (0.2-1.3); Blood Urea Nitrogen 12 mg/dL (7-17); Calcium 8.9 mg/dL (8.4-10.2); Carbon Dioxide 20 mmol/L (22-30); Chloride 110 mmol/L (98-107); Estimated Glomerular Filt Rate > 60; Glucose 99 mg/dL (65-110); Potassium 3.7 mmol/L (3.4-5.0); Sodium 136 mmol/L (137-145); Uric Acid 3.8 mg/dL (2.5-7.5)
[2024-09-17 10:28] LABS: Creatinine Urine 95.9 mg/dL; Total Protein Urine Random 17 mg/dL; Ur Ttl Prot Creatinine Ratio 0.18 mg/mg (0-0.20)
[2024-09-17 10:38] VITALS: BP 141/81; PULSE 62
[2024-09-23 11:15] LABS: Basophils Percent Auto 0.3 % (0.2-1.2); Eosinophils Absolute Auto 0.1 K/mm3 (0-0.3); Eosinophils Percent Auto 1.2 % (0-4.4); Hematocrit 31.3 % (37.0-47.0); Hemoglobin 11.2 g/dL (12.0-15.0); Immature Granulocyte Absolute 0.04 K/mm3 (0.00-0.031); Immature Granulocyte Percent A 0.6 % (0-0.5); Lymphocytes Absolute Auto 1.46 K/mm3 (0.9-3.2); Lymphocytes Percent Auto 20.1 % (18.3-44.2); Mean Corpuscular HGB Conc 35.8 g/dl (32-36); Mean Corpuscular Hemoglobin 32.7 pg (26-34); Mean Corpuscular Volume 91.3 fl (80-100); Mean Platelet Volume 10.4 fl (7.4-10.4); Monocytes Absolute Auto 0.5 K/mm3 (0.1-0.6); Monocytes Percent Auto 6.3 % (2.6-8.5); Neutrophils Absolute Auto 5.2 K/mm3 (1.3-6.7); Neutrophils Percent Auto 71.5 % (45.5-73.1); Platelet Count Result 170 k/mm3 (150-375); Red Blood Count 3.43 M/mm3 (4.2-5.4); Red Cell Distribution Width 12.7 % (11.5-14.5); White Blood Count 7.3 K/mm3 (4.5-10.0)
[2024-09-23 11:24] LABS: Alanine Aminotransferase 18 U/L (6-35); Albumin Level 3.5 g/dL (3.5-5.1); Alkaline Phosphatase 95 U/L (38-126); Anion Gap 5 mmol/L (4-12); Aspartate Amino Transferase 25 U/L (14-36); Bilirubin,Total 0.5 mg/dL (0.2-1.3); Blood Urea Nitrogen 12 mg/dL (7-17); Calcium 9.3 mg/dL (8.4-10.2); Carbon Dioxide 23 mmol/L (22-30); Chloride 107 mmol/L (98-107); Estimated Glomerular Filt Rate > 60; Glucose 81 mg/dL (65-110); Potassium 4.2 mmol/L (3.4-5.0); Sodium 135 mmol/L (137-145); Uric Acid 3.9 mg/dL (2.5-7.5)
[2024-09-23 11:35] LABS: Add Urine Microscopic? NO; Appearance Urine Clear (Clear); Bilirubin Urine Negative (Negative); Blood Urine Negative (Negative); Color Urine Yellow (Yellow); Glucose Urine UA Negative (Negative); Ketones Urine Negative (Negative); Leukocyte Esterase Ur Negative LEU/UL (Negative); Nitrate Urine Negative (Negative); Protein Urine Negative (Negative); Specific Grav Ur 1.011 (1.001-1.035); Urobilinogen Urine 0.2 mg/dL (<2.0); pH Urine 7.5 (5.0-9.0)
[2024-09-23 11:40] LABS: Creatinine Urine 56.8 mg/dL; Total Protein Urine Random 20 mg/dL; Ur Ttl Prot Creatinine Ratio 0.35 mg/mg (0-0.20)
[2024-09-30 12:05] VITALS: BP 142/79; PULSE 63
== END 2024-10-19 07:07 | disposition home or self-care (01) ==
LOC: ANHOBOP 11:34
PROVIDERS: Obstetrics & Gynecology; PCP Physician Assistant; Visit Provider Obstetrics & Gynecology
DX: O24.419 Gestational diabetes mellitus in pregnancy, unspecified control (principal); Z3A.32 32 weeks gestation of pregnancy; Z3A.33 33 weeks gestation of pregnancy; Z3A.36 36 weeks gestation of pregnancy
CPT/HCPCS: 36415; 59025; 80053; 81003; 82570; 84156; 84550; 85025

== ENCOUNTER 2024-10-06 15:42 | Inpatient (IN) | payer OTHER, SELFPAY ==
[2024-10-06] VITALS (13 sets, daily range): BP systolic 133–158; BP diastolic 60–89; PULSE 57–77; TEMP 36.5–36.6; BMI 35.4
--- OUTSIDE RECORDS SUMMARY | 2024-10-06 15:47 | XMS_ITS | Encounter Summary ---
Author Organization [facility] Address [address] [place] [address] Phone Care Team Providers Care Hydraulics Teacher Name Role Phone GabrielaInes ang MAXIMO Unavailable [phone] Ines Frazier Primary Care Provider + Reason for Visit * Reason Comments Medication Refill Encounter Details Date Type Department Care Team (Late Contact Info) Description 04/27/2023 Refill [facility] [place] [address] Florence Jim APRN, PEANUT PICKER [address] [address] Medication Refill Social History Tobacco [...] on file Legal Sex Female 9:26 AM SUPERVISOR BENZENE REFINING Gender Identity Not on file Sexual Orientation Not on file 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 Requested Prescriptions Pending Prescriptions Disp Refills FLUoxetine (PROzac) 10 MG Capsule [Pharmacy Med Name: FLUoxetine HCl 10 MG Oral Capsule] 30 [id number] Sig: Take 1 Capsule by mouth daily. [...] Dept 04/19/23 Office Visit Izzy Coker APRN, PEANUT PICKER [facility] 03/08/23 Office Visit Izzy Coker APRN, PEANUT PICKER [facility] Showing recent visits within past 182 days and meeting all other requirements Future Appointments Date Type Provider Dept 06/16/23 Appointment Ines Frazier, PAC [facility] Showing future appointments within next 90 days and meeting all other requirements Passed - Has an encounter in the past 6 months with a depression, anxiety, adjustment disorder, OCD, or PTSD visit diagnosis RVISOR BENZENE REFINING documented in this encounter Plan of Treatment [...] Ready to change Department associated with goal: [facility] Steps to [...] Depression Total Score: 16 023 7:00 AM SUPERVISOR BENZENE REFINING documented as of this encounter Care Teams Hydraulics Teacher Relationship Specialty Start Date End Date Ines Frazier PAC [address] [place] [address] PCP - General Physician Bending Roll Hand 05/18/20 Ines Frazier PAC [address] [place] [address] Physician Bending Roll Hand Physician Bending Roll Hand 05/11/20 documented as of this encounter
--- OUTSIDE RECORDS SUMMARY | 2024-10-06 15:47 | XMS_ITS | Clinical Summary ---
Author Organization [facility] Address [address] [place] [address] Phone Care Team Providers Care Medical/Surgery Registered Nurse Name Role Phone Ines Frazier Unavailable [phone] Ines Frazier Primary Care Provider + Allergies [...] pur e alcohol) 2-3 times a week [facility] Utilities Answer Date Recorded In the past 12 months has e electric, gas, oil, or water company threatened to shut off services in your home? Patient declined 06/28/2023 Social Connection and Isolation Panel Answer Date Recorded In a typical week, how many times do you talk on the phone with family, friends, or neighbors? Patient declined 06/28/2023 How often do you get togethe r with friends or relatives? Patient declined 06/28/2023 How often do you attend adventist or amish serv ices? Patient declined 06/28/2023 Do you belong to any clubs o r organizations such as adventist groups, unions, fraternal or athletic groups, or [...] Total Score - Questions 1-9 16 11/2022 [facility] - Occupational Stress Questionnaire Answer Date [...] place to sleep or slept in a fci (including now)? Patient declined 06/28/2023 Education Answer Date Recorded What is the highest level of school you have completed or the highest degree you have received? 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 Not on file Not on file Last Filed Vital Signs Vital Sign Reading Time Taken Comments Blood Pressure 134/72 06/28/2023 7:37 AM FAST FOOD COOK Pulse 51 06/28/2023 7:37 AM FAST FOOD COOK Temperature 36.7 C (98 F) 06/28/2023 7:37 AM FAST FOOD COOK Respiratory Rate 16 06/28/2023 7:37 AM FAST FOOD COOK Oxygen Saturation 98% 06/28/2023 7:37 AM FAST FOOD COOK Inhaled Oxygen Concentration - - Weight 95.7 kg (210 lb 14.4 oz) 06/28/2023 7:37 AM FAST FOOD COOK Height 175.3 cm (5' 9) 06/28/2023 7:37 AM FAST FOOD COOK Body Mass Index 31.14 06/28/2023 7:37 AM FAST FOOD COOK Plan of Treatment Health Maintenance Due Date Last Done Comments Hepatitis C Virus (HCV) Screening 1990 Hepatitis B Immunization (1 of 3 - 19+ 3-dose series) 2009 SARS-COV-2 Immunization ( season) 2023 12/29/2020, 12/01/2020 Pap Smear 11/19/2024 11/19/2021, 06/0 10/2020, 06/06/2019, Additional history exists Influenza Immunization (Season Ended) 2024 02/14/2019, 01/19/2016 Cervical Cancer Screening (CCS) 11/19/2026 HPV/Cotest 11/19/2026 11/19/2021, 10/05/2020 Td Immunization Every 10 Years (Adults With 1 Tdap) 06/01/2031 06/01/2021, 02/15/2012 Respiratory Syncytial Virus (RSV) Immunization (Adult) (1 - 1-dose 75+ series) 2065 DTaP/Tdap/Td Immunization Discontinued 06/01/2021, Human Papillomavirus (HPV) Immunization Aged Out No longer eligible based on patient's age to complete this topic Meningococcal Immunization (ACWY) Aged Out No longer [...] 024 5:10 PM CDT) Yes Brittani Rodriguez, [employer] Note: Goal/Objective: Reduce the distress related to [...] Procedure Name Priority Date/Time Associated Diagnosis Comments CULTURE, URINE 09/26/2024 12:00 AM CDT HUMAN PAPILLOMA VIRUS (HPV) Routine 11/19/2021 10:56 AM CDT Well woman exam PATHOLOGY CYTOLOGY PRODUCT SALES ENGINEER Routine 11/19/2021 10:56 AM CDT Well woman exam from Last 3 Months or Most Recently Relevant to Health Maintenance Results * CULTURE, URINE (09/26/2024 12:00 AM CDT) 09/26/2024 us Provider Scan MICROBIOLOGY - GENERAL ORDERABLE S Final Result SCAN * PATHOLOGY CYTOLOGY PRODUCT SALES ENGINEER (11/19/2021 10:56 AM CDT) SPECIMEN ADEQUACY Satisfactory for evaluation. Endocervical/transf ormation zone component is present. 11/24/2021 12:36 PM CDT [facility] DESCRIPTIVE DIAGNOSIS NEGATIVE FOR INTRAEPITHELIAL LESIONS OR MALIGNANCY. 11/24/2021 12:36 PM CDT [facility] at 1236 CDT HPV Reflex if ASCUS? No 11/24/2021 12:36 PM CDT [facility] Comment:cotest Automated Examination Analysis of this sample has been assisted by an automated imaging and review system ([employer] System, [employer], [place], [place]). This case is further evaluated and finalized by a honeycomb decapper and/or pathologist. 11/24/2021 12:36 PM CDT [facility] Disclaimer The PAP smear is a [...] unless clinically indicated. 11/24/2021 12:36 PM CDT [facility] Other CERVIX UTERI STRUCTURE / Unknown Non-Phlebotomy Collection / Unknown 11/19/2021 10:56 AM CDT 11/19/2021 10:56 AM CDT us Ines Frazier PAC PATHOLOGY/CYTOLOGY ORDER GEORGINA Final Result Performing Organization Address City/State/[facility] Co de Phone Number [facility] [address] [place] [address], * HUMAN PAPILLOMA VIRUS (HPV) (11/19/2021 10:56 AM CDT) HPV OTHER HIGH RISK TYPES, PCR NEGATIVE NEGATIVE 11/22/2021 11:51 AM CDT [facility] Comment: The following Other High Risk [...] 16 NEGATIVE NEGATIVE 11/22/2021 11:51 AM CDT [facility] Comment: A negative high-risk HPV result [...] 18 NEGATIVE NEGATIVE 11/22/2021 11:51 AM CDT [facility] Comment: A negative high-risk HPV result [...] OR DIAGNOSTIC SCREENING 11/22/2021 11:51 AM CDT [facility] Other Non-Phlebotomy Collection / Unknown 11/19/2021 10:56 AM CDT 11/19/2021 10:56 AM CDT Narrative [facility] - 11/22/2021 11:51 AM CDT Performed by Real-Time Polymerase Chain Reaction (PCR) on the Janeth Jorge 4800. This assay has been validated for use with post-aliquot samples from the [employer]5000 processor. Ines Frazier PAC LAB SEND OUTS Final Re sult [facility] [address] [place] [address], [facility] [address] [place] [address] from Last 3 Months or Most Recently Relevant to Health Maintenance Insurance Care Teams Medical/Surgery Registered Nurse Relationship Specialty Start Date End Date Ines Frazier PAC [address] [place] [address] PCP - General Physician Mortgage Professional 05/18/20 Ines Frazier, [facility] [address] [place] [address] Physician Mortgage Professional Physician Mortgage Professional 05/11/20
[2024-10-06 16:17] LABS: Basophils Percent Auto 0.3 % (0.2-1.2); Eosinophils Absolute Auto 0.1 K/mm3 (0-0.3); Eosinophils Percent Auto 1.1 % (0-4.4); Hematocrit 31.4 % (37.0-47.0); Hemoglobin 10.6 g/dL (12.0-15.0); Immature Granulocyte Absolute 0.02 K/mm3 (0.00-0.031); Immature Granulocyte Percent A 0.3 % (0-0.5); Lymphocytes Absolute Auto 1.44 K/mm3 (0.9-3.2); Mean Corpuscular HGB Conc 33.8 g/dl (32-36); Mean Corpuscular Hemoglobin 31.3 pg (26-34); Mean Corpuscular Volume 92.6 fl (80-100); Mean Platelet Volume 11.1 fl (7.4-10.4); Monocytes Absolute Auto 0.5 K/mm3 (0.1-0.6); Monocytes Percent Auto 6.1 % (2.6-8.5); Neutrophils Absolute Auto 5.9 K/mm3 (1.3-6.7); Neutrophils Percent Auto 74.2 % (45.5-73.1); Platelet Count Result 175 k/mm3 (150-375); Red Blood Count 3.39 M/mm3 (4.2-5.4); Red Cell Distribution Width 12.5 % (11.5-14.5)
[2024-10-06] MEDS: DINOPROSTONE 10 MG VAG INSERT VAGINAL (16:25)
[2024-10-06 16:47] LABS: Glucose Point of Care 104 mg/dl (65-105)
[2024-10-06 16:57] LABS: Syphilis IgG/IgM Antibody Non-Reactive (Nonreactive)
[2024-10-06 17:11] LABS: HIV 1/2 Ab P24 Ag Result Negative (Negative)
[2024-10-06 20:49] LABS: Glucose Point of Care 87 mg/dl (65-105)
[2024-10-07] VITALS (259 sets, daily range): BP systolic 114–162; BP diastolic 63–113; PULSE 51–99; TEMP 36.2–36.9; O2SAT 95–100
[2024-10-07 00:45] LABS: Glucose Point of Care 87 mg/dl (65-105)
[2024-10-07 04:37] LABS: Glucose Point of Care 80 mg/dl (65-105)
[2024-10-07] MEDS: LACTATED RINGERS 1,000 ML 125 ML IV CONT ×3 (05:41→21:04)
[2024-10-07] MEDS: OXYTOCIN 30 UNITS/NS 500 ML 30 UNITS/500 ML BAG 6 UNITS IV CONT (05:41)
--- NOTE | 2024-10-07 08:58 | PM.IMHP ---
H&P: HPI History of Present Illness Date/Time: 10/07/24 08:58 Chief Complaint: Here for induction of labor. Narrative: 33 y/o G1 at 37 1/7 weeks here for induction of labor for gestational HTN with worsening bp control. Also with A1DM, well-controlled, and hypothyroidism. GBS neg. Had Cervidil overnight, has been withdrawn. Now receiving oxytocin. Feeling some contractions. Review of Systems Review of Systems: All systems reviewed & are unremarkable except as noted in HPI and below PMFSH Past Medical History Medical History Hypothyroidism Family History Family History Father Diabetes mellitus Hypertension Grandparent Diabetes mellitus Mother Diabetes mellitus Cancer, colon Social History Social History Smoking status: Never smoker Substance use: never Do You Feel Safe in your Home?: Yes Lack of Transportation: No Lack of Food: Never True Current Housing: I Have Housing Concerned About Future Housing: No Difficulty Paying Gas/Electric Bills: No Difficulty Paying for Meds: No Currently Unemployed: No Education: Bachelor's Degree Difficulty w/ Childcare or Family Care: No Spiritual care concerns: No Meds Home Medications and Allergies Home Medications ?Medication ?Instructions ?Recorded ?Confirmed ?Type cholecalciferol (vitamin D3) 25 1,000 unit PO DAILY 09/23/24 09/30/24 History mcg (1,000 unit) capsule labetalol 200 mg tablet 200 mg PO Q12H #30 tabs 09/23/24 09/30/24 Rx vit no.95-ferrous 1 tablet PO DAILY 09/23/24 09/30/24 History fumarate 28 mg-folic acid 800 mcg tablet () valacyclovir 1 gram tablet 1,000 mg PO DAILY 09/23/24 09/30/24 History levothyroxine 25 mcg tablet 25 mcg PO DAILY 09/30/24 09/30/24 History (Levo-T) Allergies Allergy/AdvReac Type Severity Reaction Status Date / Time No Known Allergies Allergy Verified 09/30/24 11:53 Vital Signs Vital Signs - 24 hr 10/06/24 16:01 10/06/24 16:16 10/06/24 16:24 Temperature 36.5 C Pulse Rate 77 71 Blood Pressure 148/88 H 153/86 H Pulse Oximetry Oxygen Delivery 10/06/24 16:31 10/06/24 17:01 10/06/24 17:02 Temperature Pulse Rate 67 68 Blood Pressure 139/81 141/85 H Pulse Oximetry Oxygen Delivery Room Air 10/06/24 17:16 10/06/24 17:31 10/06/24 17:46 Temperature Pulse Rate 58 L 59 L 71 Blood Pressure 142/82 H 138/70 134/60 Pulse Oximetry Oxygen Delivery 10/06/24 18:01 10/06/24 18:16 10/06/24 20:04 Temperature Pulse Rate 57 L 60 59 L Blood Pressure 143/76 H 155/78 H 156/80 H Pulse Oximetry Oxygen Delivery 10/06/24 21:36 10/06/24 21:46 10/07/24 00:40 Temperature 36.6 C Pulse Rate 60 62 65 Blood Pressure 158/89 H 133/75 126/66 Pulse Oximetry Oxygen Delivery 10/07/24 00:42 10/07/24 01:01 10/07/24 04:26 Temperature 36.6 C Pulse Rate 59 L Blood Pressure 131/64 Pulse Oximetry 97 99 Oxygen Delivery 10/07/24 04:29 10/07/24 04:31 10/07/24 04:36 Temperature 36.3 C L Pulse Rate 61 Blood Pressure 152/74 H Pulse Oximetry 98 99 Oxygen Delivery 10/07/24 04:41 10/07/24 04:46 10/07/24 04:51 Temperature Pulse Rate Blood Pressure Pulse Oximetry 95 96 96 Oxygen Delivery 10/07/24 04:56 10/07/24 05:01 10/07/24 05:06 Temperature Pulse Rate 67 Blood Pressure 157/83 H Pulse Oximetry 96 96 95 Oxygen Delivery 10/07/24 05:11 10/07/24 05:16 10/07/24 05:21 Temperature Pulse Rate Blood Pressure Pulse Oximetry 95 96 95 Oxygen Delivery 10/07/24 05:26 10/07/24 05:31 10/07/24 05:36 Temperature Pulse Rate Blood Pressure Pulse Oximetry 96 96 95 Oxygen Delivery 10/07/24 05:41 10/07/24 05:46 10/07/24 05:51 Temperature 36.6 C Pulse Rate Blood Pressure Pulse Oximetry 96 99 98 Oxygen Delivery 10/07/24 05:56 10/07/24 06:01 10/07/24 06:06 Temperature Pulse Rate Blood Pressure Pulse Oximetry 97 97 98 Oxygen Delivery 10/07/24 06:11 10/07/24 06:16 10/07/24 06:21 Temperature Pulse Rate Blood Pressure Pulse Oximetry 96 98 97 Oxygen Delivery 10/07/24 06:26 10/07/24 06:31 10/07/24 06:36 Temperature Pulse Rate Blood Pressure Pulse Oximetry 97 97 97 Oxygen Delivery 10/07/24 06:41 10/07/24 06:46 10/07/24 06:51 Temperature Pulse Rate Blood Pressure Pulse Oximetry 97 96 97 Oxygen Delivery 10/07/24 06:56 10/07/24 07:01 10/07/24 07:06 Temperature Pulse Rate 76 Blood Pressure 148/74 H Pulse Oximetry 96 96 97 Oxygen Delivery 10/07/24 07:11 10/07/24 07:16 10/07/24 07:21 Temperature Pulse Rate Blood Pressure Pulse Oximetry 97 98 97 Oxygen Delivery 10/07/24 07:26 10/07/24 07:31 10/07/24 07:36 Temperature Pulse Rate 70 Blood Pressure 134/78 Pulse Oximetry 97 97 97 Oxygen Delivery 10/07/24 07:41 10/07/24 07:46 10/07/24 07:51 Temperature Pulse Rate Blood Pressure Pulse Oximetry 97 97 97 Oxygen Delivery 10/07/24 07:56 10/07/24 08:01 Temperature Pulse Rate 80 Blood Pressure 149/81 H Pulse Oximetry 97 98 Oxygen Delivery Exam Const: Orientation/consciousness: patient oriented x3 Other: Well-developed, well-nourished female in no acute distress. Neck: Thyroid: thyroid normal Lymphatic: no lymphadenopathy noted (in neck, axilla or inguinal nodes) Resp: Effort & Inspection: normal respiratory effort Auscultation: clear to auscultation bilaterally Cardio: Rate: regular rate Rhythm: regular rhythm Heart sounds: S1 normal heart sound present and S2 normal heart sound present GI: Other: ABD: Soft, nontender, nondistended, gravid. NST reactive. TOCO: irregular contractions. No guarding or rebound tenderness. No hepatosplenomegaly. : General: Yes no CVA tenderness Other: Cervix 2/80/-2. AROM with clear fluid. Vertex. IUPC placed. Back/Spine/Pelvis: Back: no CVA tenderness Skin: General skin exam: normal color and no rashes or lesions noted Neuro: General: patient oriented x3 Extrem: Other: Extremities: nontender with no edema Psych: Mental Status: mental status grossly normal Affect: normal affect H&P: Results Labs Labs: Short CBC 10/06/24 Range/Units 16:11 WBC 8.0 (4.5-10.0) K/mm3 Hgb 10.6 L (12.0-15.0) g/dL Hct 31.4 L (37.0-47.0) % Plt Count 175 (150-375) k/mm3 Assessment and Plan Assessment and plan (1) Gestational hypertension affecting first : Code(s): O13.9 - Gestational [-induced] hypertension without significant proteinuria, unspecified trimester Status: Acute Assessment and Plan: A: IUP at 37 1/7 weeks with worsening bp control in the setting of gestational HTN, A1DM. P: Induction of labor. Anticipate . Monitor bp and glc. (2) Gestational diabetes mellitus (GDM) affecting first : Code(s): O24.419 - Gestational diabetes mellitus in , unspecified control Status: Acute
[2024-10-07 09:06] LABS: Glucose Point of Care 93 mg/dl (65-105)
[2024-10-07] MEDS: LABETALOL HCL 100 MG TABLET 200 MG PO ×3 (09:10→20:34)
[2024-10-07] MEDS: valACYclovir HCL 500 MG TABLET PO ×2 (09:17→20:35)
[2024-10-07] MEDS: LEVOTHYROXINE SODIUM 25 MCG TABLET PO (09:18)
--- NOTE | 2024-10-07 10:33 | WPDANESEPPF ---
Anes - Initial Pre Proc Eval Procedure: labor epidural Date/Time: 10/07/24 10:33 Surgeon: Tee Márquez MD Pre Op Diagnosis: labor pain Pre Op Diagnosis: IOL Patient Data Age: 34 Gender: F Height: 1.73 m Weight: 105.5 kg Last Vital Signs Temp 36.6 C 10/07/24 05:46 Pulse 69 10/07/24 10:31 BP 147/82 H 10/07/24 10:31 Pulse Ox 100 10/07/24 10:28 O2 Del Method Room Air 10/06/24 17:02 Allergies Allergy/AdvReac Type Severity Reaction Status Date / Time No Known Allergies Allergy Verified 09/30/24 11:53 Home Medications ?Medication ?Instructions ?Recorded ?Confirmed ?Type cholecalciferol (vitamin D3) 25 1,000 unit PO DAILY 09/23/24 09/30/24 History mcg (1,000 unit) capsule labetalol 200 mg tablet 200 mg PO Q12H #30 tabs 09/23/24 09/30/24 Rx vit no.95-ferrous 1 tablet PO DAILY 09/23/24 09/30/24 History fumarate 28 mg-folic acid 800 mcg tablet () valacyclovir 1 gram tablet 1,000 mg PO DAILY 09/23/24 09/30/24 History levothyroxine 25 mcg tablet 25 mcg PO DAILY 09/30/24 09/30/24 History (Levo-T) Laboratory Tests 10/06/24 10/06/24 10/06/24 16:11 16:44 20:46 WBC 8.0 K/mm3 (4.5-10.0) RBC 3.39 L M/mm3 (4.2-5.4) Hgb 10.6 L g/dL (12.0-15.0) Hct 31.4 L % (37.0-47.0) MCV 92.6 fl (80-100) MCH 31.3 pg (26-34) MCHC 33.8 g/dl (32-36) RDW 12.5 % (11.5-14.5) Plt Count 175 k/mm3 (150-375) MPV 11.1 H fl (7.4-10.4) Immature Gran % (Auto) 0.3 % (0-0.5) Neut % (Auto) 74.2 H % (45.5-73.1) Lymph % (Auto) 18.0 L % (18.3-44.2) [place] % (Auto) 6.1 % (2.6-8.5) Eos % (Auto) 1.1 % (0-4.4) Baso % (Auto) 0.3 % (0.2-1.2) Lymph # (Auto) 1.44 K/mm3 (0.9-3.2) [place] # (Auto) 0.5 K/mm3 (0.1-0.6) Eos # (Auto) 0.1 K/mm3 (0-0.3) Baso # (Auto) 0.0 K/mm3 (0.0-0.1) Abs Immat Gran (auto) 0.02 K/mm3 (0.00-0.031) Absolute Neuts (auto) 5.9 K/mm3 (1.3-6.7) Absolute Nucleated RBC 0.000 K/mm3 (0.0-0.012) Nucleated RBC % 0.0 % (0.0-0.2) POC Capillary Glucose 104 mg/dl 87 mg/dl (65-105) (65-105) Syphilis IgG/IgM Ab Non-reactive (Nonreactive) HIV 1&2 Ab/P24 Ag 4thGn Negative (Negative) Blood Type A Positive Antibody Screen Negative 10/07/24 10/07/24 10/07/24 00:42 04:27 09:04 WBC RBC Hgb Hct MCV MCH MCHC RDW Plt Count MPV Immature Gran % (Auto) Neut % (Auto) Lymph % (Auto) [place] % (Auto) Eos % (Auto) Baso % (Auto) Lymph # (Auto) [place] # (Auto) Eos # (Auto) Baso # (Auto) Abs Immat Gran (auto) Absolute Neuts (auto) Absolute Nucleated RBC Nucleated RBC % POC Capillary Glucose 87 mg/dl 80 mg/dl 93 mg/dl (65-105) (65-105) (65-105) Syphilis IgG/IgM Ab HIV 1&2 Ab/P24 Ag 4thGn Blood Type Antibody Screen Patient hx anesthesia problems: none Family hx anesthesia problems: none Results Review: All pre-operative results and documents have been reviewed as part of the pre-operative evaluation. [facility] Past Medical History Medical History (Updated 10/07/24 @ 10:33 by Thomas Ardon DO) Pre-eclampsia Gestational diabetes mellitus (GDM) affecting first Hypothyroidism Family History Family History Father Diabetes mellitus Hypertension Grandparent Diabetes mellitus Mother Diabetes mellitus Cancer, colon Social History Social History Smoking status: Never smoker Substance use: never Do You Feel Safe in your Home?: Yes Lack of Transportation: No Lack of Food: Never True Current Housing: I Have Housing Concerned About Future Housing: No Difficulty Paying Gas/Electric Bills: No Difficulty Paying for Meds: No Currently Unemployed: No Education: Bachelor's Degree Difficulty w/ Childcare or Family Care: No Spiritual care concerns: No Anes - Eval Final PreProcedure Day of Procedure 10/07/24 10:33 Patient weight: obese ASA classification: III Anesthetic plan: proceed Anesthesia type and monitoring: regional epidural and standard monitoring Results Review: All pre-operative results and documents have been reviewed as part of the pre-operative evaluation. Informed Consent: The patient's anesthetic plan and its attendant risks and benefits were discussed with the patient/family/POA. Questions were solicited and answers provided to the satisfaction of the patient/family/POA.
--- NOTE | 2024-10-07 12:44 | PM.OBPNLAB ---
Pain Control Date/time seen: 10/07/24 12:44 Comfortable with epidural. Pelvic Exam Dilation (cm): 3 Effacement (%): 80 station: -2 Contractions Contraction frequency: 3 Contraction pattern: Regular Status status: Category l Assessment and Plan Comments: Continue labor.
[2024-10-07 13:02] LABS: Glucose Point of Care 102 mg/dl (65-105)
[2024-10-07] MEDS: ONDANSETRON INJ 4 MG/2 ML VIAL IV PUSH (13:54)
[2024-10-07 17:32] LABS: Glucose Point of Care 88 mg/dl (65-105)
[2024-10-07] MEDS: ACETAMINOPHEN 500 MG TABLET 1000 MG PO (19:04)
[2024-10-07] MEDS: PROMETHAZINE HCL 25 MG/ML AMPUL 12.5 MG IV PUSH (19:39)
[2024-10-07 21:10] LABS: Glucose Point of Care 82 mg/dl (65-105)
[2024-10-07] MEDS: CALCIUM CARBONATE (TUMS) 500 MG (200 MG ELEMENTAL) PO (23:00)
[2024-10-08] VITALS (240 sets, daily range): BP systolic 81–162; BP diastolic 44–118; PULSE 59–116; RESP 14–20; TEMP 36.5–37.5; O2SAT 90–100
[2024-10-08 01:48] LABS: Glucose Point of Care 81 mg/dl (65-105)
[2024-10-08] MEDS: AMPICILLIN 2 GM/NS 100 ML 2 GM/100 ML BAG IVPB (03:25)
[2024-10-08] MEDS: SODIUM CHLORIDE 0.9% IV 300 ML 600 ML I-UTERINE (03:55)
[2024-10-08 05:30] LABS: Glucose Point of Care 65 mg/dl (65-105)
[2024-10-08] MEDS: LEVOTHYROXINE SODIUM 25 MCG TABLET PO (06:28)
[2024-10-08 06:39] LABS: Glucose Point of Care 104 mg/dl (65-105)
[2024-10-08] MEDS: OXYTOCIN 30 UNITS/NS 500 ML 30 UNITS/500 ML BAG IV CONT (06:39)
[2024-10-08] MEDS: AMPICILLIN 1 GM/NS 50 ML 1 GM/50 ML BAG IVPB ×2 (07:39→11:28)
--- NOTE | 2024-10-08 08:57 | PM.OBPNLAB ---
Pain Control Date/time seen: 10/08/24 08:57 Comments: Still comfortable with epidural. Had adequate contractions intermittently by IUPC monitoring. She had an episode of FHR bradycardia which responded to intervention. Oxytocin was stopped, has been restarted. BP and blood glc have been stable. Pelvic Exam Dilation (cm): 5 Effacement (%): 80 station: -2 Contractions Contraction frequency: 3 Contraction pattern: Regular Status status: Category l Comments: 145 reactive currently Assessment and Plan Pitocin rate (mU/min): 10 Comments: A: Protracted dilation in labor. P: Discussed with the patient at length, and plan to continue labor for now. Reviewed the possibility of delivery today. Will continue to monitor closely.
[2024-10-08] MEDS: LABETALOL HCL 100 MG TABLET 200 MG PO ×2 (08:58→17:30)
[2024-10-08] MEDS: valACYclovir HCL 500 MG TABLET PO (08:58)
[2024-10-08] MEDS: LACTATED RINGERS 1,000 ML 125 ML IV CONT (09:51)
[2024-10-08 10:35] LABS: Glucose Point of Care 86 mg/dl (65-105)
--- NOTE | 2024-10-08 12:03 | PM.OBPNLAB ---
Pain Control Date/time seen: 10/08/24 12:03 Still comfortable. Pelvic Exam Dilation (cm): 5 Effacement (%): 80 station: -2 Comments: Cervix is unchanged. Contractions Contraction frequency: 3 Contraction pattern: Regular Status status: Category l Assessment and Plan Comments: A: Arrest of dilation in labor. P: Offered primary . She understands risks of surgery to include risks of anesthesia, risks of pain, infection, bleeding, blood products, thromboembolic phenomena and damage to adjacent structures such as bowel, bladder, ureters, blood vessels and nerves. She understands all these risks and elects to proceed with surgery.
--- NOTE | 2024-10-08 12:05 | WPDHPUPDATE1 ---
History and Physical Update Update Date/Time: 10/08/24 12:05 History and Physical has been reviewed, including an updated exam of the patient. There are NO changes in the patient's condition. Risks, benefits, and alternatives have been discussed and questions answered. Patient agrees to proceed with procedure.
[2024-10-08] MEDS: ACETAMINOPHEN 500 MG TABLET 1000 MG PO ×3 (12:19→23:40)
[2024-10-08] MEDS: AZITHROMYCIN 500 MG/NS 250 ML 500 MG/250 ML BAG 250 MG IVPB (12:32)
[2024-10-08] MEDS: FAMOTIDINE 20 MG/2 ML VIAL IV PUSH (12:44)
[2024-10-08] MEDS: ONDANSETRON INJ 4 MG/2 ML VIAL IV PUSH (12:44)
[2024-10-08] MEDS: ceFAZolin 2 GM/D5W 50 ML 2 GM/50 ML BAG IVPB (13:08)
--- NOTE | 2024-10-08 13:37 | S_PTH ---
PATIENT: EDWAR GANDHI LOC: [facility] U#:[id number] AGE/SX: 34/F ROOM: 290 RE10/06/[address]: Tee Márquez MD : 1990 BED: 00 DIS: 10/12/2024 SPEC #: [id number] RECD: 10/09/24 07:49 STATUS: SAEID REQ #: [id number] SONALI: 10/08/24 13:[address]: Tee Márquez DEPT: [facility] Surgical RECD BY: Temi Lopez ENTERED: 10/09/24 07:50 SP TYPE: Surgical OTHR DR: Ines Frazier, PA Tissues: A - Placenta Procedures: Hematoxylin and Eosin Stain Gross and Microscopic Level 5
--- NOTE | 2024-10-08 14:12 | P.PCNOB_ITS ---
OB - Delivery Note Procedure Delivery date: 10/08/24 Pre-op diagnosis: Arrest of Dilation, Gestational Diabetes and Gestational Hypertension Post-op Diagnosis: Same Induction method: Per Cervidil Protocol Delivery augmentation: Rupture of Membranes and Pitocin Delivery monitor: External FHT, External Uterine, Internal FHT and Internal Uterine Procedure Performed: Primary Surgeon: Tee Márquez MD Anesthesia type: Epidural Description of Procedure/Findings: Findings: Anterior uterine fibroid 5x5 cm. Otherwise, normal-appearing uterus, tubes and ovaries. Techniques: The patient was taken to the operating room where she was prepared and draped in the usual sterile fashion in dorsal supine position with a leftward tilt. She received cefazolin and azithromycin preoperatively. Epidural anesthesia was found to be adequate. A Pfannenstiel skin incision was made and carried through to the underlying layer of the fascia. The fascia was incised in the midline and the incision was extended laterally. The fascia was dissected free of the underlying rectus muscles. The rectus muscles were in the midline. The peritoneum was identified, tented up and entered sharply. The peritoneal incision was extended superiorly and inferiorly with good visualization of the bladder. The bladder blade was placed. The vesicouterine peritoneum was identified, tented up and entered sharply. The incision was extended laterally and the bladder flap was developed. The bladder blade was replaced. The uterus was then incised sharply in a transverse fashion along the lower uterine segment. The incision was extended laterally. The infa nt's head was delivered atraumatically to the sterile field, followed by the body. The nose and mouth were bulb suctioned. After a delay, the cord was clamped and cut. The infant was handed off the field. Cord blood was collected. The placenta was removed manually and was passed off the field. The uterus was exteriorized and cleared of all clots and debris. The uterine incision was reapproximated using 0 Monocryl in a running, locked fashion. Excellent hemostasis resulted as did excellent reapproximation of the normal anatomy. The uterus was returned the abdomen. The pelvis was irrigated copiously with warmed normal saline. The bladder flap was treated with Surgicel powder. Rigorous hemostasis was assured. The fascial layer was reapproximated using 0 Vicryl in a running fashion. The skin was closed with a running, subcuticular stitch of 4 0 Vicryl. Dermaflex was applied externally. Sponge, lap, needle and instrument counts were correct. The patient was taken to the recovery room in stable condition. The went to the nursery in stable condition. I was present and scrubbed the entire procedure. Specimen: Yes (Cord blood, placenta) Estimated Blood Loss: 615 Urine Output: 600 Drains: Yes (Shore) Packing: No Pathology: Yes Complications: None Condition: Stable Disposition: PACU Baby Date of : 10/08/24 Time of : 13:35 Gestational Age by Date: 37 Infant gender: Female presentation: vertex Placenta delivery description: Manual Removal and Normal Configuration Cord Vessel Description: 3 Vessels and Nuchal Cord (x2)
--- NOTE | 2024-10-08 14:17 | P.DS_ITS ---
DS: Admitting Diagnosis Discharge Date 10/12/24 Admitting Diagnosis IUP at 37 weeks Gestational hypertension with worsening bp control Gestational diabetes DS: Discharge Diagnosis Discharge Diagnosis (1) delivery delivered: Code(s): O82 - Encounter for delivery without indication Status: Acute (2) Gestational diabetes mellitus (GDM) affecting first : Code(s): O24.419 - Gestational diabetes mellitus in , unspecified control Status: Acute (3) Gestational hypertension affecting first : Code(s): O13.9 - Gestational [-induced] hypertension without significant proteinuria, unspecified trimester Status: Acute OB - DS: Summary OB Procedures : PIH Mgmt OB Procedures Intrapartum: OB Procedures: : None Peripartum Data Procedures: Procedures Operation Date: 10/08/24 12:45 <No data on this case meets the specified criteria> Time Spent with Patient Time attestation: Total time spent providing and/or coordinating discharge services: DS: Data Data Completed and Pending Labs on day of discharge: Labs from last 24 hours 10/08/24 10/08/24 10/08/24 10:32 06:31 05:28 POC Capillary Glucose 86 104 65 10/08/24 10/07/24 10/07/24 01:44 21:07 17:30 POC Capillary Glucose 81 82 88 Discharge Plan Discharge Attending physician on discharge: Tee Márquez Discharging Clinician: Tee Márquez Patient Disposition: Home Activity: may shower, may drive after 2 weeks and pelvic rest Diet: regular Wound Care Instructions: incision open to air Discharge Instructions: Education: Mom and Baby Guide Given to: Mother Follow-Up: Call your delivering provider's office for an appointment to be seen in: 4 Weeks Mom and baby should come to the [facility] for the follow-up appointment. Appointment Date/Time: October 14, 2024 at 9:00 am What to expect at your follow-up visit: Blood Pressure Check Physical Assessment Call [phone] if you are unable to keep your appointment time. BREAST CARE: * Wear a snug supportive bra. * For engorgement discomfort: Breast Feeding: * Apply warm moist washcloths * Express milk as needed to relieve engorgement * Wear loose clothing Bottle Feeding: * May apply ice packs * For sore nipples: * Identify correct latch-on * Apply warm moist washcloths before and after nursing * Air dry nipples after nursing * May apply Lansinoh cream to nipples ABDOMINAL INCISION: * Allow incision to air dry * Do NOT use lotions or powders on your incision * When showering, allow soap and water to run over the incision, but do not wash incision PERINEAL CARE: * Until bleeding stops, use your lola bottle after urinating * Change your pad frequently throughout the day * You may take sitz baths several times a day (fill your bathtub with warm water and soak for 20 minutes.) Do NOT bathe in the water * No tub baths until seen by your physician - You may shower ACTIVITY: * Rest as much as possible. * Do not exercise or lift anything heavier than your baby (such as laundry or other children.) * Avoid stairs or driving as much as possible. * Do not put anything into the vagina. No douching, tampons, or sexual activity until seen by physician. NOTIFY PHYSICIAN IF YOU HAVE ANY QUESTIONS OR IF ANY OF THE FOLLOWING SYMPTOMS OCCUR: * If your incision becomes red, swollen, or more painful than what you have experienced in the hospital. * If your vaginal bleeding becomes foul smelling. * If your vaginal bleeding becomes more heavy than a period or if your bleeding changes from pink to bright red. However, you may pass an occasional walnut- sized clot once or twice for the first week . * If you experience a sharp, shooting pain in your calves. * If you discover a hard, reddened area on your breast or if you experience flu- like symptoms. DIET: * Eat regular, well-balanced meals. * Drink plenty of fluids daily. If , drink to thirst. Call or return if temperature above 100.4? F, increased abdominal pain, increased vaginal bleeding or any new problems. Patient Language: Nepali Stand Alone Forms: General Discharge Information Follow-up/Referrals: Tee Márquez MD [Physician] - 4 Weeks Discharge Medications: New ibuprofen 600 mg tablet 600 mg PO Q6H PRN (Reason: cramps) Qty: 30 0RF ferrous sulfate 325 mg (65 mg iron) tablet 325 mg PO DAILY Qty: 30 0RF oxycodone-acetaminophen [Percocet] 5-325 mg tablet 1 - 2 tablet PO Q6H PRN (Reason: pain) Qty: 30 0RF Continued PNV cmb#95-ferrous fumarate-FA [] 28 mg iron- 800 mcg tablet 1 tablet PO DAILY levothyroxine [Levo-T] 25 mcg tablet 25 mcg PO DAILY valacyclovir 1 gram tablet 1,000 mg PO DAILY cholecalciferol (vitamin D3) 25 mcg (1,000 unit) capsule 1,000 unit PO DAILY labetalol 200 mg tablet 200 mg PO Q12H Qty: 30 0RF Date of admission: 10/06/24 15:42 Primary Care Provider: Freddie,Ines Romano Admitting Provider: Tee Márquez Attending physician on admission: Tee Márquez Condition: Stable
[2024-10-08] MEDS: LIDOCAINE 5% PATCH 1 PATCH TRANSDERM (15:41)
--- NOTE | 2024-10-08 16:47 | OBPPTRN ---
Patient transferred to post room #290 via stretcher. Support person present. Oriented to unit, room, information board, rooming in, admission packet and security measures. Patient verbalizes understanding.
--- NOTE | 2024-10-08 17:08 | PC.NURSE ---
1645. Introductions were made, then consulted with patient to assess needs related to . Infant is currently in level 2 nursery. Discussed with mother her plans to feed her infant and the experience so far. Encouraged mother to express any questions or concerns she has regarding feedings. Breast pump provided due to infant in level 2 nursery. Instructions given on cleaning, care, usage, that there should be no pain, pumping schedule for milk production, collection, and storage of human milk. Patient was assessed for correct placement, flange size, to pump for comfort and nipple stretching/stimulation for adequate milk production every 3 hours (8 times in 24 hours) 1-2 times at night. Parents are encouraged to record the pumping schedule on the feeding sheet.?Mother voiced understanding of the education shared along with mom/baby guide and the pump measurement, flange fit handout for additional resource information. Resources provided for inpatient and outpatient services with the feeding sheet, mom/baby guide, and name/number written on the communication board. Mother voiced understanding of information and will call if there is a request for assistance. Reported to the Primary RN.
[2024-10-08] MEDS: SIMETHICONE 80 MG TAB.CHEW PO (17:30)
[2024-10-08] MEDS: DOCUSATE SODIUM 100 MG CAPSULE PO (17:30)
[2024-10-08] MEDS: KETOROLAC 15 MG/ML VIAL (*BKC) IV PUSH ×2 (17:30→23:40)
[2024-10-08] MEDS: DEXTROSE 5%/0.45% SOD CHL 1,000 ML 125 ML IV CONT (20:00)
[2024-10-09] VITALS (7 sets, daily range): BP systolic 118–137; BP diastolic 69–87; PULSE 66–83; RESP 18; TEMP 36.6–37.2; O2SAT 97–99
[2024-10-09 05:20] LABS: Basophils Percent Auto 0.2 % (0.2-1.2); Eosinophils Percent Auto 0.1 % (0-4.4); Hematocrit 23.7 % (37.0-47.0); Immature Granulocyte Absolute 0.04 K/mm3 (0.00-0.031); Immature Granulocyte Percent A 0.5 % (0-0.5); Lymphocytes Absolute Auto 0.84 K/mm3 (0.9-3.2); Lymphocytes Percent Auto 10.4 % (18.3-44.2); Mean Corpuscular HGB Conc 33.8 g/dl (32-36); Mean Corpuscular Hemoglobin 31.9 pg (26-34); Mean Corpuscular Volume 94.4 fl (80-100); Mean Platelet Volume 11.4 fl (7.4-10.4); Monocytes Absolute Auto 0.7 K/mm3 (0.1-0.6); Monocytes Percent Auto 8.1 % (2.6-8.5); Neutrophils Absolute Auto 6.5 K/mm3 (1.3-6.7); Neutrophils Percent Auto 80.7 % (45.5-73.1); Platelet Count Result 127 k/mm3 (150-375); Red Blood Count 2.51 M/mm3 (4.2-5.4); Red Cell Distribution Width 12.9 % (11.5-14.5); White Blood Count 8.1 K/mm3 (4.5-10.0)
[2024-10-09] MEDS: ACETAMINOPHEN 500 MG TABLET 1000 MG PO ×4 (05:47→23:45)
[2024-10-09] MEDS: LABETALOL HCL 100 MG TABLET 200 MG PO ×2 (05:47→17:27)
[2024-10-09] MEDS: KETOROLAC 15 MG/ML VIAL (*BKC) IV PUSH (05:47)
[2024-10-09] MEDS: LEVOTHYROXINE SODIUM 25 MCG TABLET PO (05:47)
[2024-10-09] MEDS: MULTIVIT/MIN/PREN/FOL AC/IRON TABLET 1 TAB PO (08:19)
[2024-10-09] MEDS: DOCUSATE SODIUM 100 MG CAPSULE PO ×2 (08:20→17:28)
[2024-10-09] MEDS: SIMETHICONE 80 MG TAB.CHEW PO ×3 (08:20→17:27)
[2024-10-09] MEDS: POLYSACCHARIDE IRON COMPLEX 150 MG CAPSULE PO ×2 (08:20→17:28)
[2024-10-09] MEDS: IBUPROFEN 600 MG TABLET PO ×3 (11:33→23:45)
--- NOTE | 2024-10-09 12:09 | PC.NURSE ---
[id number]. remains in level 2 nursery at this time. Mom is continuing to pump with the hospital pump every 3 hours. She has gone down to breastfeed x1 and plans to go again later this afternoon. SHe has no pain with pumping. We discussed her history of hypothyroidism and her risk for lower milk supply as a result. She also states that she takes vit D, synthroid and Vasyclovir daily. SHe has no questions or concerns at this time. Reported to the primary RN.
--- NOTE | 2024-10-09 12:11 | WPDANLDPN2 ---
Anes-Prog Note L&D Date/Time: 10/09/24 12:11 Comfortable throughout: section Neuraxial method: epidural Epidural/Spinal procedure site: clean & non-tender Neuro status: Neuro function grossly intact. Cardiovascular status: normal Respiratory status: normal Airway patency: baseline Mental status: baseline Post-Op hydration status: normal Vital Signs: Last Vital Signs Temp 37.2 C 10/09/24 07:35 Pulse 83 10/09/24 07:35 Resp 18 10/09/24 07:35 BP 122/79 10/09/24 07:35 Pulse Ox 99 10/09/24 07:35 O2 Del Method Room Air 10/08/24 20:00 O2 Flow Rate 1 10/08/24 14:30 Pain score (VAS): 07/08 I/O: Intake & Output 10/08/24 10/09/24 10/09/24 23:59 07:59 15:59 Intake Total 520 Output Total 850 1000 500 Balance -850 -1000 20 Post-procedural complaints: none Patient feedback: Patient satisfied with anesthetic care.
--- NOTE | 2024-10-09 12:11 | WPDANLDNPN2 ---
Anes-Prog Note L&D-Neuraxial Date/Time: 10/09/24 12:11 Neuraxial medications: epidural PF morphine Opiod-related complaints: pruritis mild, no treatment Patient feedback: Patient satisfied with post-operative pain management.
--- NOTE | 2024-10-09 15:58 | PM.OBPNVD ---
OB - PN: Subj Subjective Date/time seen: 10/09/24 15:58 Narrative: Pain OK. Tolerating diet. OB - PN: Obj Data Labs 10/09/24 04:32 Labs: Laboratory Results - last 24 hr 10/09/24 04:32 WBC 8.1 RBC 2.51 L Hgb 8.0 L Hct 23.7 L MCV 94.4 MCH 31.9 MCHC 33.8 RDW 12.9 Plt Count 127 L MPV 11.4 H Immature Gran % (Auto) 0.5 Neut % (Auto) 80.7 H Lymph % (Auto) 10.4 L [place] % (Auto) 8.1 Eos % (Auto) 0.1 Baso % (Auto) 0.2 Lymph # (Auto) 0.84 L [place] # (Auto) 0.7 H Eos # (Auto) 0.0 Baso # (Auto) 0.0 Abs Immat Gran (auto) 0.04 H Absolute Neuts (auto) 6.5 Absolute Nucleated RBC 0.000 Nucleated RBC % 0.0 OB - PN A/P Assessment and Plan (1) delivery delivered: Code(s): O82 - Encounter for delivery without indication Status: Acute Assessment and Plan: A: POD#1, doing well. P: Continue labetalol 200 mg daily. Routine care. (2) Gestational hypertension affecting first : Code(s): O13.9 - Gestational [-induced] hypertension without significant proteinuria, unspecified trimester Status: Acute (3) Gestational diabetes mellitus (GDM) affecting first : Code(s): O24.419 - Gestational diabetes mellitus in , unspecified control Status: Acute Plan Comments: A: POD#1, doing well. P: Routine care. Exam Narrative: AVSS I/O OK ABD soft, nontender, fundus firm. Incision c/d/i. EXT nontender
[2024-10-09] MEDS: oxyCODONE HCL (*CRX) 5 MG TAB IR PO (21:35)
[2024-10-10] VITALS (9 sets, daily range): BP systolic 124–146; BP diastolic 67–88; PULSE 72–96; RESP 18; TEMP 36.5–36.8; O2SAT 98–100
[2024-10-10] MEDS: oxyCODONE HCL (*CRX) 5 MG TAB IR PO ×2 (03:53→22:30)
[2024-10-10] MEDS: ACETAMINOPHEN 500 MG TABLET 1000 MG PO ×4 (05:46→23:41)
[2024-10-10] MEDS: LEVOTHYROXINE SODIUM 25 MCG TABLET PO (05:47)
[2024-10-10] MEDS: IBUPROFEN 600 MG TABLET PO ×4 (05:47→23:41)
[2024-10-10] MEDS: LABETALOL HCL 100 MG TABLET 200 MG PO ×2 (05:47→17:40)
[2024-10-10] MEDS: SIMETHICONE 80 MG TAB.CHEW PO ×3 (08:00→17:39)
[2024-10-10] MEDS: LIDOCAINE 5% PATCH 1 PATCH TRANSDERM (08:00)
[2024-10-10] MEDS: DOCUSATE SODIUM 100 MG CAPSULE PO ×2 (08:00→17:39)
[2024-10-10] MEDS: POLYSACCHARIDE IRON COMPLEX 150 MG CAPSULE PO ×2 (08:00→17:39)
[2024-10-10] MEDS: MULTIVIT/MIN/PREN/FOL AC/IRON TABLET 1 TAB PO (08:00)
--- NOTE | 2024-10-10 09:02 | P.PNOB_ITS ---
OB - PN: Subj Subjective Date/time seen: 10/10/24 09:02 Narrative: Pain OK. Tolerating diet. OB - PN: Obj Data Labs 10/09/24 04:32 OB - PN A/P Plan day: 2 Comments: A: POD#2, doing well. P: Routine care. Exam 2 Narrative: AVSS I/O OK ABD soft, nontender, fundus firm. Incision c/d/i. EXT nontender
[2024-10-11] VITALS (7 sets, daily range): BP systolic 127–142; BP diastolic 65–90; PULSE 72–76; RESP 16–18; TEMP 36.4–37.2; O2SAT 97–98
[2024-10-11] MEDS: ACETAMINOPHEN 500 MG TABLET 1000 MG PO ×4 (05:44→23:00)
[2024-10-11] MEDS: IBUPROFEN 600 MG TABLET PO ×4 (05:45→23:00)
[2024-10-11] MEDS: LABETALOL HCL 100 MG TABLET 200 MG PO ×2 (05:45→17:57)
[2024-10-11] MEDS: LEVOTHYROXINE SODIUM 25 MCG TABLET PO (05:45)
[2024-10-11] MEDS: POLYSACCHARIDE IRON COMPLEX 150 MG CAPSULE PO ×2 (08:45→17:57)
[2024-10-11] MEDS: DOCUSATE SODIUM 100 MG CAPSULE PO ×2 (08:45→17:57)
[2024-10-11] MEDS: MULTIVIT/MIN/PREN/FOL AC/IRON TABLET 1 TAB PO (08:45)
[2024-10-11] MEDS: SIMETHICONE 80 MG TAB.CHEW PO ×3 (08:45→17:56)
--- NOTE | 2024-10-11 08:50 | P.PNOB_ITS ---
OB - PN: Subj Subjective Date/time seen: 10/11/24 08:50 Narrative: Pain OK. Tolerating diet. OB - PN: Obj Data Labs 10/09/24 04:32 OB - PN A/P Plan Comments: A: POD#3, doing well. P: Routine care. Exam 2 Narrative: AVSS I/O OK ABD soft, nontender, fundus firm. Incision c/d/i. EXT nontender
--- NOTE | 2024-10-11 11:30 | PC.NURSE ---
Introductions were made, then consulted with patient to assess needs related to . Discussed with mother her plans to feed her and the experience so far. She is pumping and bottle feeding. She feels comfortable with the pump and doesn't have any questions or concerns at this time. Resources provided for inpatient and outpatient services with the feeding sheet, mom/baby guide and name written on the communication board. Mother voiced understanding of information and will call if there is a request for assistance. Reported to the Primary RN.?
[2024-10-12 05:20] VITALS: BP 146/85; PULSE 71
[2024-10-12] MEDS: LABETALOL HCL 100 MG TABLET 200 MG PO (05:20)
[2024-10-12] MEDS: IBUPROFEN 600 MG TABLET PO (05:20)
[2024-10-12] MEDS: ACETAMINOPHEN 500 MG TABLET 1000 MG PO (05:20)
[2024-10-12] MEDS: LEVOTHYROXINE SODIUM 25 MCG TABLET PO (07:09)
[2024-10-12 08:16] VITALS: BP 134/67; PULSE 79; RESP 16; TEMP 36.4; O2SAT 97
[2024-10-12] MEDS: SIMETHICONE 80 MG TAB.CHEW PO (08:48)
[2024-10-12] MEDS: DOCUSATE SODIUM 100 MG CAPSULE PO (08:48)
[2024-10-12] MEDS: POLYSACCHARIDE IRON COMPLEX 150 MG CAPSULE PO (08:48)
[2024-10-12] MEDS: MULTIVIT/MIN/PREN/FOL AC/IRON TABLET 1 TAB PO (08:48)
--- NOTE | 2024-10-12 10:05 | PC.NURSE ---
Reviewed standard discharge information with patient. She is pumping and bottle feeding but had one feeding at the breast last night. It is her intention to just pump and bottle feed. Parents are encouraged to take the feeding log and continue to track feedings and output for the first week . Offered outpatient resources with [facility] [place]. Patient has the Mom/Baby Guide for further education and reference for common concerns, phone numbers, and guidance on when to call the doctor. A feeding plan was added to the ?s discharge plan. Patient states that she has no further questions or concerns regarding .?
--- NOTE | 2024-10-12 11:12 | P.PNOB_ITS ---
OB - PN: Subj Subjective Date/time seen: 10/12/24 11:12 Narrative: Pain OK. Tolerating diet. Would like to go home. OB - PN: Obj Data Labs 10/09/24 04:32 OB - PN A/P Plan day: 4 Comments: A: POD#4, doing well. P: Home to f/u 4 weeks. Exam 2 Narrative: AVSS ABD soft, nontender, fundus firm. Incision c/d/i. EXT nontender
== END 2024-10-12 11:40 | disposition home or self-care (01) | DRG 787 ==
LOC: ANHLDR 15:45 → ANHOB2 10-08 16:58
PROVIDERS: Admitting Provider Obstetrics & Gynecology; PCP Physician Assistant; Visit Provider Obstetrics & Gynecology
PROC: 10D00Z1 Extraction of Products of Conception, Low, Open Approach (ICD-10-PCS; CPT 59514; principal; 2024-10-08 12:45)
DX: O62.1 Secondary uterine inertia (principal); O10.92 Unspecified pre-existing hypertension complicating childbirth; O13.4 Gestational [pregnancy-induced] hypertension without significant proteinuria, complicating childbirth; O99.284 Endocrine, nutritional and metabolic diseases complicating childbirth; E03.9 Hypothyroidism, unspecified; O24.429 Gestational diabetes mellitus in childbirth, unspecified control; O69.81X0 Labor and delivery complicated by cord around neck, without compression, not applicable or unspecified; O11.4 Pre-existing hypertension with pre-eclampsia, complicating childbirth; Z3A.37 37 weeks gestation of pregnancy; Z37.0 Single live birth; O42.92 Full-term premature rupture of membranes, unspecified as to length of time between rupture and onset of labor
CPT/HCPCS: 36415; 82948; 85025; 86593; 86703; 86850; 86900; 86901; 88307; A9270; G0432; J0290; J0456; J0690; J1885; J2274; J2405; J2550; J2590; J2795; J7030; J7120

== ENCOUNTER 2024-10-13 21:19 | Observation (INO) | payer OTHER, SELFPAY ==
[2024-10-13] VITALS (68 sets, daily range): BP systolic 136–170; BP diastolic 70–96; PULSE 55–93; RESP 16; TEMP 36.4; O2SAT 97–100; BMI 31.8
--- OUTSIDE RECORDS SUMMARY | 2024-10-13 17:00 | XMS_ITS | Clinical Summary ---
Author Organization [facility] Address [address] [place] [address] Phone Care Team Providers Care Infantry Indirect Fire Crewmember Name Role Phone Ines Frazier Unavailable [phone] Ines Frazier Primary Care Provider + Allergies [...] pur e alcohol) 2-3 times a week [facility] Utilities Answer Date Recorded In the [...] declined 06/28/2023 How often do you attend baptist or temple serv ices? Patient declined 06/28/2023 Do you belong to any clubs o r organizations such as baptist groups, unions, fraternal or athletic groups, or [...] Total Score - Questions 1-9 16 11/2022 [facility] - Occupational Stress Questionnaire Answer Date Recorded [...] place to sleep or slept in a care home (including now)? Patient declined 06/28/2023 Education Answer Date Recorded What is the highest level of school you have completed or the highest degree you have received? 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..] 024 5:10 PM CDT) Yes Brittani Rodriguez, SCRIPT MANAGER Note: Goal/Objective: Reduce the distress related to trauma being. Anticipated Time Frame for Goal Completion: 6 months Goal Reviewed with: patient Readiness to change: Ready to change Department associated with goal: [facility] Steps to [...] AM CDT Well woman exam PATHOLOGY CYTOLOGY MAINTENANCE EQUIPMENT OPERATOR Routine 11/19/2021 10:56 AM CDT Well woman exam from Last 3 Months or Most Recently Relevant to Health Maintenance Results * CULTURE, URINE (09/26/2024 12:00 AM CDT) 09/26/2024 us Provider Scan MICROBIOLOGY - GENERAL ORDERABLE S Final Result SCAN * PATHOLOGY CYTOLOGY MAINTENANCE EQUIPMENT OPERATOR (11/19/2021 10:56 AM CDT) SPECIMEN ADEQUACY Satisfactory for evaluation. Endocervical/transf ormation zone component is present. 11/24/2021 12:36 PM CDT [facility] DESCRIPTIVE DIAGNOSIS NEGATIVE FOR INTRAEPITHELIAL LESIONS OR MALIGNANCY. 11/24/2021 12:36 PM CDT [facility] at 1236 CDT HPV Reflex if ASCUS? No 11/24/2021 12:36 PM CDT [facility] Comment:cotest Automated Examination Analysis of this sample has been assisted by an automated imaging and review system ([employer] Imaging System, [employer], [place], [place]). This case is further evaluated and finalized by a glassware engraver and/or pathologist. 11/24/2021 12:36 PM CDT [facility] Disclaimer The PAP smear is [...] unless clinically indicated. 11/24/2021 12:36 PM CDT [facility] Other CERVIX UTERI STRUCTURE / Unknown Non-Phlebotomy Collection / Unknown 11/19/2021 10:56 AM CDT 11/19/2021 10:56 AM CDT us Ines Frazier PAC PATHOLOGY/CYTOLOGY ORDER GEORGINA Final Result Performing Organization Address City/State/[facility] Co de Phone Number [facility] [address] [place] [address], * HUMAN PAPILLOMA VIRUS (HPV) (11/19/2021 10:56 AM CDT) HPV OTHER HIGH RISK TYPES, PCR NEGATIVE NEGATIVE 11/22/2021 11:51 AM CDT [facility] Comment: The following Other High [...] 16 NEGATIVE NEGATIVE 11/22/2021 11:51 AM CDT [facility] Comment: A negative high-risk HPV [...] 18 NEGATIVE NEGATIVE 11/22/2021 11:51 AM CDT [facility] Comment: A negative high-risk HPV [...] OR DIAGNOSTIC SCREENING 11/22/2021 11:51 AM CDT [facility] Other Non-Phlebotomy Collection / Unknown 11/19/2021 10:56 AM CDT 11/19/2021 10:56 AM CDT Narrative [facility] - 11/22/2021 11:51 AM CDT Performed by Real-Time Polymerase Chain Reaction (PCR) on the Janeth Jorge 4800. This assay has been validated for use with post-aliquot samples from the [employer] processor. Ines Frazier PAC LAB SEND OUTS Final Re sult [facility] [address] [place] [address], [facility] [address] [place] [address] from Last 3 Months or Most Recently Relevant to Health Maintenance Insurance Care Teams [employer] Indirect Fire Crewmember Relationship Specialty Start Date End Date Ines Frazier PAC [address] [place] [address] PCP - General Physician Product Mgr 05/18/20 Ines Frazier, [facility] [address] [place] [address] Physician Product Mgr Physician Product Mgr 05/11/20
--- OUTSIDE RECORDS SUMMARY | 2024-10-13 17:00 | XMS_ITS | Encounter Summary ---
Author Organization [facility] Address [address] [place] [address] Phone Care Team Providers Care Machine Fur Cleaner Name Role Phone GabrielaInes ang MAXIMO Unavailable [phone] Ines Frazier Primary Care Provider + Reason for Visit * Reason Comments Medication Refill Encounter Details Date Type Department Care Team (Late Contact Info) Description 04/27/2023 Refill [facility] - [facility] [address] [place] [address] Florence Jim APRN, SECURITY SERVICES SPECIALIST [address] [address] Medication Refill Social History Tobacco [...] on file Legal Sex Female 9:26 AM OVEN HEATER HELPER Gender Identity Not on file Sexual Orientation Not on file 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 Requested Prescriptions Pending Prescriptions Disp Refills FLUoxetine (PROzac) 10 MG Capsule [Pharmacy Med Name: FLUoxetine HCl 10 MG Oral Capsule] 30 [id number] Sig: Take 1 Capsule by mouth daily. [...] Dept 04/19/23 Office Visit Izzy Coker APRN, SECURITY SERVICES SPECIALIST [facility] 03/08/23 Office Visit Izzy Coker APRN, SECURITY SERVICES SPECIALIST [facility] Showing recent visits within past 182 days and meeting all other requirements Future Appointments Date Type Provider Dept 06/16/23 Appointment Ines Frazier, PAC [facility] Showing future appointments within next 90 days and meeting all other requirements Passed - Has an encounter in the past 6 months with a depression, anxiety, adjustment disorder, OCD, or PTSD visit diagnosis HEATER HELPER documented in this encounter Plan of Treatment [...] Ready to change Department associated with goal: [facility] Steps to achieve goal: [...] Depression Total Score: 16 023 7:00 AM OVEN HEATER HELPER documented as of this encounter Care Teams Machine Fur Cleaner Relationship Specialty Start Date End Date Ines Frazier PAC [address] [place] [address] PCP - General Physician Tanyard Worker 05/18/20 Ines Frazier PAC [address] [place] [address] Physician Tanyard Worker Physician Tanyard Worker 05/11/20 documented as of this encounter
[2024-10-13 17:32] LABS: Basophils Percent Auto 0.4 % (0.2-1.2); Eosinophils Absolute Auto 0.2 K/mm3 (0-0.3); Eosinophils Percent Auto 3.5 % (0-4.4); Hematocrit 24.9 % (37.0-47.0); Hemoglobin 8.4 g/dL (12.0-15.0); Immature Granulocyte Absolute 0.06 K/mm3 (0.00-0.031); Immature Granulocyte Percent A 1.1 % (0-0.5); Lymphocytes Absolute Auto 0.95 K/mm3 (0.9-3.2); Lymphocytes Percent Auto 17.6 % (18.3-44.2); Mean Corpuscular HGB Conc 33.7 g/dl (32-36); Mean Corpuscular Hemoglobin 31.3 pg (26-34); Mean Corpuscular Volume 92.9 fl (80-100); Mean Platelet Volume 9.6 fl (7.4-10.4); Monocytes Absolute Auto 0.3 K/mm3 (0.1-0.6); Monocytes Percent Auto 6.3 % (2.6-8.5); Neutrophils Absolute Auto 3.8 K/mm3 (1.3-6.7); Neutrophils Percent Auto 71.1 % (45.5-73.1); Platelet Count Result 229 k/mm3 (150-375); Red Blood Count 2.68 M/mm3 (4.2-5.4); Red Cell Distribution Width 12.6 % (11.5-14.5); White Blood Count 5.4 K/mm3 (4.5-10.0)
[2024-10-13 17:42] LABS: Alanine Aminotransferase 29 U/L (6-35); Albumin Level 3.5 g/dL (3.5-5.1); Alkaline Phosphatase 92 U/L (38-126); Anion Gap 8 mmol/L (4-12); Aspartate Amino Transferase 33 U/L (14-36); Bilirubin,Total 0.4 mg/dL (0.2-1.3); Blood Urea Nitrogen 12 mg/dL (7-17); Carbon Dioxide 23 mmol/L (22-30); Chloride 107 mmol/L (98-107); Estimated Glomerular Filt Rate > 60; Glucose 87 mg/dL (65-110); Potassium 3.8 mmol/L (3.4-5.0); Sodium 138 mmol/L (137-145); Total Protein 6.4 g/dL (6.3-8.2); Uric Acid 5.5 mg/dL (2.5-7.5)
[2024-10-13] MEDS: ONDANSETRON HCL ODT 4 MG TABLET PO (17:59)
[2024-10-13] MEDS: NIFEdipine 30 MG TAB.ER.24 PO (18:00)
[2024-10-13] MEDS: ACETAMINOPHEN 500 MG TABLET 1000 MG PO (18:16)
[2024-10-13 18:19] LABS: Add Urine Microscopic? YES; Appearance Urine Cloudy (Clear); Bacteria Urine None Seen /hpf; Bilirubin Urine Negative (Negative); Blood Urine 1+ (Negative); Color Urine Yellow (Yellow); Glucose Urine UA Negative (Negative); Ketones Urine 1+ mg/dL (Negative); Leukocyte Esterase Ur Negative LEU/UL (Negative); Nitrate Urine Negative (Negative); Non Pathogenic Casts 0-2; Protein Urine 1+ mg/dL (Negative); Specific Grav Ur 1.024 (1.001-1.035); Squamous Epithelial Cell Urine Occasional /hpf (Few); WBC Urine 0-5 /hpf (0-3); pH Urine 6.5 (5.0-9.0)
[2024-10-13 19:01] LABS: Creatinine Urine 184.1 mg/dL; Total Protein Urine Random 63 mg/dL; Ur Ttl Prot Creatinine Ratio 0.34 mg/mg (0-0.20)
[2024-10-13] MEDS: DEXTROSE 5%/0.45% SOD CHL 500 ML 999 ML IV CONT (19:28)
[2024-10-13] MEDS: DEXTROSE 5%/0.45% SOD CHL 1,000 ML 999 ML IV CONT (19:28)
[2024-10-13] MEDS: LABETALOL HCL 100 MG TABLET 200 MG PO (20:25)
[2024-10-13] MEDS: IBUPROFEN 600 MG TABLET PO (20:25)
[2024-10-13] MEDS: LACTATED RINGERS 1,000 ML 75 ML IV CONT (21:28)
[2024-10-13] MEDS: MAGNESIUM SULF 4 GM/WATER100ML 4 GM/100 ML BAG IVPB (21:29)
[2024-10-13] MEDS: METOCLOPRAMIDE HCL INJ 10 MG/2 ML VIAL IV PUSH (21:41)
[2024-10-13] MEDS: MAGNESIUM SULF 20GM/WATER500ML 500 ML 50 MG IV CONT (21:57)
--- NOTE | 2024-10-13 23:09 | PC.NURSE ---
1815- RN notified MD of patient arrival and patient complaints. RN also notified MD of lab results, vital signs, and physical assessment with reflexes. RN notified MD that patient received Procardia, Zofran, and Tylenol per orders given to magda ROSA. 1908- RN notified Dr. Márquez of patient's severe range blood pressures as well as no headache relief so far with the Tylenol. MD verified last time patient took Motrin and gave orders to give Motrin as prescribed. MD also wanted clarification on if patient has taken her labetalol doses today. MD gave orders to give a 500mL fluid bolus, see JUN. 2015- RN notified MD that patient's headache has not gotten any better and that the fluid bolus is finished. RN notified MD of patient continued severe range blood pressures. RN also notified MD that I could give motrin again in 15 minutes according to the last time patient took the Motrin today. RN also notified MD that patient has not taken her evening dose of labetalol yet. MD gave orders to give Motrin and labetalol. 2114- RN notified MD that patient states her headache has not gotten any better and has actually gotten worse and is rating it a 8-9/10 on the pain scale instead of a 6-7/10 on the pain scale. RN also notified MD that patient's nausea is back and worse. RN updated MD what time the medications were given and the patient's most recent vital signs since the last phone call. MD gave orders to admit patient and start mag (see JUN), and to repeat CBC and CMP at 0500. MD also gave orders for IV reglan (see JUN).
[2024-10-14] VITALS (169 sets, daily range): BP systolic 117–166; BP diastolic 67–92; PULSE 61–123; RESP 14–18; TEMP 36.4–36.7; O2SAT 78–100
--- NOTE | 2024-10-14 04:19 | OBADM ---
This patient, Bita Canchola, admitted to the OB room [facility] Post [facility] for observation. Patient/family oriented to hospital policies and general routines including ID bracelet, bed and alarms, visiting hours, pain management, procedures, bathroom and other care routines, personal items, smoking policy, room service/diet, and visiting hours. Patient/Family are encouraged to report perceived risks to care and to ask questions if they do not understand what they are told or what they should do.
[2024-10-14 05:29] LABS: Hematocrit 28.5 % (37.0-47.0); Hemoglobin 9.7 g/dL (12.0-15.0); Mean Corpuscular Hemoglobin 31.5 pg (26-34); Mean Corpuscular Volume 92.5 fl (80-100); Mean Platelet Volume 9.5 fl (7.4-10.4); Platelet Count Result 246 k/mm3 (150-375); Red Blood Count 3.08 M/mm3 (4.2-5.4); Red Cell Distribution Width 12.3 % (11.5-14.5); White Blood Count 5.6 K/mm3 (4.5-10.0)
[2024-10-14] MEDS: ONDANSETRON INJ 4 MG/2 ML VIAL IV PUSH (05:32)
[2024-10-14 05:49] LABS: Alanine Aminotransferase 32 U/L (6-35); Albumin Level 3.7 g/dL (3.5-5.1); Alkaline Phosphatase 105 U/L (38-126); Anion Gap 8 mmol/L (4-12); Aspartate Amino Transferase 34 U/L (14-36); Bilirubin,Total 0.4 mg/dL (0.2-1.3); Blood Urea Nitrogen 6 mg/dL (7-17); Carbon Dioxide 23 mmol/L (22-30); Chloride 105 mmol/L (98-107); Estimated CRCL calculation 149 ml/min; Estimated Glomerular Filt Rate > 60; Glucose 108 mg/dL (65-110); Potassium 3.7 mmol/L (3.4-5.0); Sodium 136 mmol/L (137-145); Total Protein 6.7 g/dL (6.3-8.2)
[2024-10-14 05:53] LABS: Basophils Percent Auto 0.6 % (0.2-1.2); Eosinophils Absolute Auto 0.2 K/mm3 (0-0.3); Eosinophils Percent Auto 3.9 % (0-4.4); Hematocrit 28.2 % (37.0-47.0); Hemoglobin 9.5 g/dL (12.0-15.0); Immature Granulocyte Absolute 0.09 K/mm3 (0.00-0.031); Immature Granulocyte Percent A 1.7 % (0-0.5); Lymphocytes Absolute Auto 1.04 K/mm3 (0.9-3.2); Lymphocytes Percent Auto 19.5 % (18.3-44.2); Mean Corpuscular HGB Conc 33.7 g/dl (32-36); Mean Corpuscular Hemoglobin 31.4 pg (26-34); Mean Corpuscular Volume 93.1 fl (80-100); Mean Platelet Volume 9.6 fl (7.4-10.4); Monocytes Absolute Auto 0.4 K/mm3 (0.1-0.6); Monocytes Percent Auto 7.3 % (2.6-8.5); Neutrophils Absolute Auto 3.6 K/mm3 (1.3-6.7); Platelet Count Result 254 k/mm3 (150-375); Red Blood Count 3.03 M/mm3 (4.2-5.4); Red Cell Distribution Width 12.3 % (11.5-14.5); White Blood Count 5.3 K/mm3 (4.5-10.0)
--- NOTE | 2024-10-14 05:56 | PC.NURSE ---
0554- RN updated MD regarding patient status. RN updated MD about patients assessment, VS, lab results, and the absence of a headache since mag has been initiated. MD gave no new orders at this time.
[2024-10-14 05:59] LABS: Uric Acid 4.7 mg/dL (2.5-7.5)
--- NOTE | 2024-10-14 06:41 | PC.NURSE ---
0600- Report given to Saumya Sanchez RN
[2024-10-14] MEDS: MAGNESIUM SULF 20GM/WATER500ML 500 ML 50 MG IV CONT (08:34)
[2024-10-14] MEDS: LABETALOL HCL 100 MG TABLET 200 MG PO ×2 (08:35→20:03)
[2024-10-14] MEDS: METOCLOPRAMIDE HCL INJ 10 MG/2 ML VIAL IV PUSH (08:36)
[2024-10-14] MEDS: IBUPROFEN 600 MG TABLET PO (08:55)
[2024-10-14] MEDS: LACTATED RINGERS 1,000 ML 75 ML IV CONT (10:35)
--- NOTE | 2024-10-14 12:29 | PC.NURSE ---
Dr. Márquez at bedside discussing POC. Orders received to discontinue mag infusion and check VS every 4 hours.
--- NOTE | 2024-10-14 12:37 | PM.IMHP ---
H&P: HPI History of Present Illness Date/Time: 10/14/24 12:37 Chief Complaint: High bp Narrative: 34 y/o female POD#6 after delivery. Had gestational HTN. She had bp 160/100 at home, and a headache. We started IV magnesium sulfate and continued labetalol 200 mg po bid. She feels much better today. No headache, no abdominal pain. Lower leg edema is improved. Urine output is great. Review of Systems Review of Systems: All systems reviewed & are unremarkable except as noted in HPI and below PMFSH Past Medical History Medical History (Updated 10/14/24 @ 12:41 by Tee Márquez MD) Pre-eclampsia Gestational diabetes mellitus (GDM) affecting first Hypothyroidism Surgical History Surgical History History of delivery Family History Family History Father Diabetes mellitus Hypertension Grandparent Diabetes mellitus Mother Diabetes mellitus Cancer, colon Social History Social History Smoking status: Never smoker Substance use: never Do You Feel Safe in your Home?: Yes Lack of Transportation: No Lack of Food: Never True Current Housing: I Have Housing Concerned About Future Housing: No Difficulty Paying Gas/Electric Bills: No Difficulty Paying for Meds: No Currently Unemployed: No Education: High School Diploma/GED Difficulty w/ Childcare or Family Care: No Spiritual care concerns: No Meds Home Medications and Allergies Home Medications ?Medication ?Instructions ?Recorded ?Confirmed ?Type cholecalciferol (vitamin D3) 25 1,000 unit PO DAILY 09/23/24 10/13/24 History mcg (1,000 unit) capsule labetalol 200 mg tablet 200 mg PO Q12H #30 tabs 09/23/24 10/13/24 Rx valacyclovir 1 gram tablet 1,000 mg PO DAILY 09/23/24 10/13/24 History levothyroxine 25 mcg tablet 25 mcg PO DAILY 09/30/24 10/13/24 History (Levo-T) ferrous sulfate 325 mg (65 mg 325 mg PO DAILY #30 tabs 10/09/24 10/13/24 Rx iron) tablet ibuprofen 600 mg tablet 600 mg PO Q6H PRN cramps #30 tabs 10/09/24 10/13/24 Rx oxycodone-acetaminophen 5 mg-325 1 - 2 tablet PO Q6H PRN pain #30 10/09/24 10/13/24 Rx mg tablet (Percocet) tabs Allergies Allergy/AdvReac Type Severity Reaction Status Date / Time No Known Allergies Allergy Verified 10/13/24 18:01 Vital Signs Vital Signs - 24 hr 10/13/24 17:22 10/13/24 17:31 10/13/24 18:00 Temperature Pulse Rate 71 71 68 Respiratory Rate Blood Pressure 157/91 H 159/79 H Blood Pressure [Left Arm] 152/84 H Pulse Oximetry 10/13/24 18:01 10/13/24 18:31 10/13/24 18:45 Temperature Pulse Rate 68 63 63 Respiratory Rate Blood Pressure 152/84 H 159/92 H 170/94 H Blood Pressure [Left Arm] Pulse Oximetry 10/13/24 19:01 10/13/24 19:16 10/13/24 19:31 Temperature Pulse Rate 66 63 60 Respiratory Rate Blood Pressure 165/96 H 157/80 H 160/86 H Blood Pressure [Left Arm] Pulse Oximetry 10/13/24 19:46 10/13/24 20:01 10/13/24 20:15 Temperature Pulse Rate 55 L 64 61 Respiratory Rate Blood Pressure 164/83 H 157/96 H 160/90 H Blood Pressure [Left Arm] Pulse Oximetry 10/13/24 20:25 10/13/24 20:26 10/13/24 20:31 Temperature Pulse Rate 77 62 Respiratory Rate Blood Pressure 157/94 H Blood Pressure [Left Arm] Pulse Oximetry 99 100 10/13/24 20:36 10/13/24 20:41 10/13/24 20:45 Temperature Pulse Rate Respiratory Rate Blood Pressure Blood Pressure [Left Arm] Pulse Oximetry 99 98 100 10/13/24 20:46 10/13/24 20:48 10/13/24 20:53 Temperature Pulse Rate 86 Respiratory Rate Blood Pressure 157/88 H Blood Pressure [Left Arm] Pulse Oximetry 100 98 10/13/24 20:58 10/13/24 21:00 10/13/24 21:03 Temperature Pulse Rate 62 Respiratory Rate Blood Pressure 167/89 H Blood Pressure [Left Arm] Pulse Oximetry 99 98 10/13/24 21:08 10/13/24 21:13 10/13/24 21:16 Temperature Pulse Rate 67 Respiratory Rate Blood Pressure 164/88 H Blood Pressure [Left Arm] Pulse Oximetry 97 99 10/13/24 21:18 10/13/24 21:23 10/13/24 21:28 Temperature Pulse Rate Respiratory Rate Blood Pressure Blood Pressure [Left Arm] Pulse Oximetry 98 97 98 10/13/24 21:29 10/13/24 21:33 10/13/24 21:38 Temperature 36.4 C L Pulse Rate 67 Respiratory Rate 16 Blood Pressure 164/88 H Blood Pressure [Left Arm] Pulse Oximetry 99 97 98 10/13/24 21:43 10/13/24 21:48 10/13/24 21:54 Temperature Pulse Rate Respiratory Rate Blood Pressure Blood Pressure [Left Arm] Pulse Oximetry 99 97 98 10/13/24 21:57 10/13/24 21:59 10/13/24 22:04 Temperature Pulse Rate 80 Respiratory Rate 16 Blood Pressure 148/88 H Blood Pressure [Left Arm] Pulse Oximetry 98 99 99 10/13/24 22:09 10/13/24 22:14 10/13/24 22:16 Temperature Pulse Rate 68 Respiratory Rate Blood Pressure 148/88 H Blood Pressure [Left Arm] Pulse Oximetry 100 99 10/13/24 22:19 10/13/24 22:24 10/13/24 22:29 Temperature Pulse Rate Respiratory Rate Blood Pressure Blood Pressure [Left Arm] Pulse Oximetry 98 99 98 10/13/24 22:30 10/13/24 22:34 10/13/24 22:39 Temperature Pulse Rate 72 Respiratory Rate Blood Pressure 148/88 H Blood Pressure [Left Arm] Pulse Oximetry 98 98 10/13/24 22:44 10/13/24 22:49 10/13/24 22:54 Temperature Pulse Rate Respiratory Rate Blood Pressure Blood Pressure [Left Arm] Pulse Oximetry 97 99 98 10/13/24 22:59 10/13/24 23:01 10/13/24 23:04 Temperature Pulse Rate 68 Respiratory Rate Blood Pressure 147/85 H Blood Pressure [Left Arm] Pulse Oximetry 97 97 10/13/24 23:09 10/13/24 23:14 10/13/24 23:16 Temperature Pulse Rate 69 Respiratory Rate Blood Pressure 141/87 H Blood Pressure [Left Arm] Pulse Oximetry 97 98 10/13/24 23:19 10/13/24 23:24 10/13/24 23:29 Temperature Pulse Rate Respiratory Rate Blood Pressure Blood Pressure [Left Arm] Pulse Oximetry 98 98 99 10/13/24 23:31 10/13/24 23:34 10/13/24 23:38 Temperature Pulse Rate 68 Respiratory Rate Blood Pressure 136/70 Blood Pressure [Left Arm] Pulse Oximetry 100 99 10/13/24 23:42 10/13/24 23:42 10/13/24 23:45 Temperature Pulse Rate 80 Respiratory Rate Blood Pressure 137/84 Blood Pressure [Left Arm] Pulse Oximetry 100 100 10/13/24 23:47 10/13/24 23:52 10/13/24 23:57 Temperature Pulse Rate Respiratory Rate Blood Pressure Blood Pressure [Left Arm] Pulse Oximetry 99 97 97 10/14/24 00:01 10/14/24 00:02 10/14/24 00:07 Temperature Pulse Rate 62 Respiratory Rate Blood Pressure 131/78 Blood Pressure [Left Arm] Pulse Oximetry 98 100 10/14/24 00:08 10/14/24 00:12 10/14/24 00:17 Temperature 36.4 C Pulse Rate Respiratory Rate Blood Pressure Blood Pressure [Left Arm] Pulse Oximetry 97 97 10/14/24 00:22 10/14/24 00:27 10/14/24 00:32 Temperature Pulse Rate Respiratory Rate Blood Pressure Blood Pressure [Left Arm] Pulse Oximetry 97 96 97 10/14/24 00:37 10/14/24 00:42 10/14/24 00:47 Temperature Pulse Rate Respiratory Rate Blood Pressure Blood Pressure [Left Arm] Pulse Oximetry 97 96 96 10/14/24 00:52 10/14/24 00:57 10/14/24 01:01 Temperature Pulse Rate 89 Respiratory Rate Blood Pressure 156/78 H Blood Pressure [Left Arm] Pulse Oximetry 96 95 10/14/24 01:02 10/14/24 01:09 10/14/24 01:09 Temperature Pulse Rate Respiratory Rate Blood Pressure Blood Pressure [Left Arm] Pulse Oximetry 97 96 97 10/14/24 01:14 10/14/24 01:19 10/14/24 01:24 Temperature Pulse Rate Respiratory Rate Blood Pressure Blood Pressure [Left Arm] Pulse Oximetry 95 96 96 10/14/24 01:29 10/14/24 01:34 10/14/24 01:39 Temperature Pulse Rate Respiratory Rate Blood Pressure Blood Pressure [Left Arm] Pulse Oximetry 96 96 95 10/14/24 01:44 10/14/24 01:52 10/14/24 01:53 Temperature Pulse Rate 85 Respiratory Rate Blood Pressure 127/75 Blood Pressure [Left Arm] Pulse Oximetry 94 98 10/14/24 01:53 10/14/24 01:57 10/14/24 02:02 Temperature 36.6 C Pulse Rate 85 Respiratory Rate 18 Blood Pressure 127/75 Blood Pressure [Left Arm] Pulse Oximetry 98 93 95 10/14/24 02:07 10/14/24 02:12 10/14/24 02:21 Temperature Pulse Rate Respiratory Rate Blood Pressure Blood Pressure [Left Arm] Pulse Oximetry 95 95 100 10/14/24 02:26 10/14/24 02:31 10/14/24 02:36 Temperature Pulse Rate Respiratory Rate Blood Pressure Blood Pressure [Left Arm] Pulse Oximetry 95 95 96 10/14/24 02:41 10/14/24 02:46 10/14/24 02:51 Temperature Pulse Rate Respiratory Rate Blood Pressure Blood Pressure [Left Arm] Pulse Oximetry 96 96 96 10/14/24 02:56 10/14/24 03:01 10/14/24 03:06 Temperature Pulse Rate 75 Respiratory Rate Blood Pressure 128/78 Blood Pressure [Left Arm] Pulse Oximetry 96 96 95 10/14/24 03:11 10/14/24 03:16 10/14/24 03:24 Temperature Pulse Rate Respiratory Rate Blood Pressure Blood Pressure [Left Arm] Pulse Oximetry 95 94 97 10/14/24 03:29 10/14/24 03:34 10/14/24 03:39 Temperature Pulse Rate Respiratory Rate Blood Pressure Blood Pressure [Left Arm] Pulse Oximetry 93 93 93 10/14/24 03:44 10/14/24 03:49 10/14/24 03:54 Temperature Pulse Rate Respiratory Rate Blood Pressure Blood Pressure [Left Arm] Pulse Oximetry 93 93 92 10/14/24 03:59 10/14/24 04:04 10/14/24 04:09 Temperature Pulse Rate Respiratory Rate Blood Pressure Blood Pressure [Left Arm] Pulse Oximetry 92 92 92 10/14/24 04:14 10/14/24 04:19 10/14/24 04:28 Temperature Pulse Rate Respiratory Rate Blood Pressure Blood Pressure [Left Arm] Pulse Oximetry 92 92 97 10/14/24 04:29 10/14/24 04:33 10/14/24 04:38 Temperature Pulse Rate 96 Respiratory Rate Blood Pressure 135/67 Blood Pressure [Left Arm] Pulse Oximetry 94 94 10/14/24 04:43 10/14/24 04:48 10/14/24 04:53 Temperature Pulse Rate Respiratory Rate Blood Pressure Blood Pressure [Left Arm] Pulse Oximetry 95 96 96 10/14/24 04:58 10/14/24 05:01 10/14/24 05:03 Temperature 36.6 C Pulse Rate 82 Respiratory Rate Blood Pressure 136/76 Blood Pressure [Left Arm] Pulse Oximetry 95 95 10/14/24 05:08 10/14/24 05:10 10/14/24 05:10 Temperature Pulse Rate Respiratory Rate Blood Pressure Blood Pressure [Left Arm] Pulse Oximetry 96 78 L 78 L 10/14/24 05:10 10/14/24 05:15 10/14/24 05:20 Temperature Pulse Rate Respiratory Rate Blood Pressure Blood Pressure [Left Arm] Pulse Oximetry 78 L 94 97 10/14/24 05:30 10/14/24 05:36 10/14/24 05:41 Temperature 36.4 C L Pulse Rate 84 Respiratory Rate 16 Blood Pressure 136/76 Blood Pressure [Left Arm] Pulse Oximetry 95 96 94 10/14/24 05:46 10/14/24 05:51 10/14/24 05:56 Temperature Pulse Rate Respiratory Rate Blood Pressure Blood Pressure [Left Arm] Pulse Oximetry 97 96 97 10/14/24 06:01 10/14/24 06:06 10/14/24 06:11 Temperature Pulse Rate Respiratory Rate Blood Pressure Blood Pressure [Left Arm] Pulse Oximetry 97 96 96 10/14/24 06:16 10/14/24 06:21 10/14/24 06:35 Temperature Pulse Rate Respiratory Rate Blood Pressure Blood Pressure [Left Arm] Pulse Oximetry 96 97 98 10/14/24 06:40 10/14/24 06:45 10/14/24 06:50 Temperature Pulse Rate Respiratory Rate Blood Pressure Blood Pressure [Left Arm] Pulse Oximetry 95 95 96 10/14/24 06:55 10/14/24 07:00 10/14/24 07:01 Temperature Pulse Rate 83 Respiratory Rate Blood Pressure 137/78 Blood Pressure [Left Arm] Pulse Oximetry 96 97 10/14/24 07:05 10/14/24 07:10 10/14/24 07:15 Temperature Pulse Rate Respiratory Rate Blood Pressure Blood Pressure [Left Arm] Pulse Oximetry 96 94 94 10/14/24 07:20 10/14/24 07:25 10/14/24 07:30 Temperature Pulse Rate Respiratory Rate Blood Pressure Blood Pressure [Left Arm] Pulse Oximetry 96 96 94 10/14/24 07:35 10/14/24 07:40 10/14/24 07:45 Temperature Pulse Rate Respiratory Rate Blood Pressure Blood Pressure [Left Arm] Pulse Oximetry 94 93 93 10/14/24 07:50 10/14/24 07:55 10/14/24 08:00 Temperature Pulse Rate Respiratory Rate Blood Pressure Blood Pressure [Left Arm] Pulse Oximetry 93 92 95 10/14/24 08:07 10/14/24 08:12 10/14/24 08:17 Temperature Pulse Rate Respiratory Rate Blood Pressure Blood Pressure [Left Arm] Pulse Oximetry 98 98 96 10/14/24 08:22 10/14/24 08:27 10/14/24 08:32 Temperature Pulse Rate Respiratory Rate Blood Pressure Blood Pressure [Left Arm] Pulse Oximetry 98 98 98 10/14/24 08:35 10/14/24 08:37 10/14/24 08:42 Temperature Pulse Rate 86 Respiratory Rate Blood Pressure Blood Pressure [Left Arm] Pulse Oximetry 98 99 10/14/24 08:45 10/14/24 08:47 10/14/24 08:52 Temperature 36.6 C Pulse Rate 88 Respiratory Rate 14 Blood Pressure 137/78 Blood Pressure [Left Arm] Pulse Oximetry 98 97 97 10/14/24 08:57 10/14/24 09:01 10/14/24 09:02 Temperature Pulse Rate 77 Respiratory Rate Blood Pressure 117/70 Blood Pressure [Left Arm] Pulse Oximetry 98 96 10/14/24 09:07 10/14/24 09:12 10/14/24 09:17 Temperature Pulse Rate Respiratory Rate Blood Pressure Blood Pressure [Left Arm] Pulse Oximetry 94 93 93 10/14/24 09:22 10/14/24 09:27 10/14/24 09:32 Temperature Pulse Rate Respiratory Rate Blood Pressure Blood Pressure [Left Arm] Pulse Oximetry 91 94 93 10/14/24 09:37 10/14/24 09:42 10/14/24 09:47 Temperature Pulse Rate Respiratory Rate Blood Pressure Blood Pressure [Left Arm] Pulse Oximetry 90 95 94 10/14/24 09:52 10/14/24 09:57 10/14/24 10:02 Temperature Pulse Rate Respiratory Rate Blood Pressure Blood Pressure [Left Arm] Pulse Oximetry 94 96 95 10/14/24 10:07 10/14/24 10:12 10/14/24 10:17 Temperature Pulse Rate Respiratory Rate Blood Pressure Blood Pressure [Left Arm] Pulse Oximetry 93 93 92 10/14/24 10:22 10/14/24 10:27 10/14/24 10:32 Temperature Pulse Rate Respiratory Rate Blood Pressure Blood Pressure [Left Arm] Pulse Oximetry 95 95 97 10/14/24 10:37 10/14/24 10:42 10/14/24 10:47 Temperature Pulse Rate Respiratory Rate Blood Pressure Blood Pressure [Left Arm] Pulse Oximetry 98 96 94 10/14/24 10:52 10/14/24 10:57 10/14/24 11:01 Temperature Pulse Rate 75 Respiratory Rate Blood Pressure 130/79 Blood Pressure [Left Arm] Pulse Oximetry 95 96 10/14/24 11:02 10/14/24 11:07 10/14/24 11:12 Temperature Pulse Rate Respiratory Rate Blood Pressure Blood Pressure [Left Arm] Pulse Oximetry 97 99 98 10/14/24 11:17 10/14/24 11:22 10/14/24 11:27 Temperature Pulse Rate Respiratory Rate Blood Pressure Blood Pressure [Left Arm] Pulse Oximetry 97 97 97 10/14/24 11:32 10/14/24 11:37 10/14/24 11:42 Temperature Pulse Rate Respiratory Rate Blood Pressure Blood Pressure [Left Arm] Pulse Oximetry 98 97 96 10/14/24 11:45 10/14/24 12:30 Temperature Pulse Rate 80 Respiratory Rate Blood Pressure 138/72 Blood Pressure [Left Arm] Pulse Oximetry 99 Exam Const: Orientation/consciousness: patient oriented x3 Other: Well-developed, well-nourished female in no acute distress. Neck: Thyroid: thyroid normal Lymphatic: no lymphadenopathy noted (in neck, axilla or inguinal nodes) Resp: Effort & Inspection: normal respiratory effort Auscultation: clear to auscultation bilaterally Cardio: Rate: regular rate Rhythm: regular rhythm Heart sounds: S1 normal heart sound present and S2 normal heart sound present GI: Other: ABD: Soft, nontender, nondistended. No guarding or rebound tenderness. No hepatosplenomegaly. Fundus firm and nontender, below umbilicus. Incision c/d/i. : General: Yes no CVA tenderness Other: Deferred. Back/Spine/Pelvis: Back: no CVA tenderness Skin: General skin exam: normal color and no rashes or lesions noted Neuro: General: patient oriented x3 Extrem: Other: Extremities: nontender with no edema Psych: Mental Status: mental status grossly normal Affect: normal affect H&P: Results Labs Labs: Short CBC 10/13/24 10/14/24 10/14/24 Range/Units 17:25 05:00 05:00 WBC 5.4 5.6 5.3 (4.5-10.0) K/mm3 Hgb 8.4 L 9.7 L (12.0-15.0) g/dL Hct 24.9 L (37.0-47.0) % Plt Count 229 D (150-375) k/mm3 10/14/24 10/14/24 10/14/24 Range/Units 05:00 05:00 05:00 WBC (4.5-10.0) K/mm3 Hgb 9.5 L (12.0-15.0) g/dL Hct 28.5 L 28.2 L (37.0-47.0) % Plt Count 246 254 (150-375) k/mm3 [facility] 10/13/24 10/14/24 17:25 05:05 Sodium 138 136 L Potassium 3.8 3.7 Chloride 107 105 Carbon Dioxide 23 23 BUN 12 6 L D Creatinine 0.75 0.56 L Glucose 87 108 Calcium 9.0 8.0 L Liver Function 10/13/24 10/14/24 Range/Units 17:25 05:05 Total Bilirubin 0.4 0.4 (0.2-1.3) mg/dL AST 33 34 (14-36) U/L ALT 29 32 (6-35) U/L Alkaline Phosphatase 92 105 (38-126) U/L Albumin 3.5 3.7 (3.5-5.1) g/dL Urine 10/13/24 Range/Units 18:07 Urine Color Yellow (Yellow) Urine Appearance Cloudy H (Clear) Urine pH 6.5 (5.0-9.0) Ur Specific [place] 1.024 (1.001-1.035) Urine Protein 1+ H (Negative) mg/dL Urine Glucose (UA) Negative (Negative) mg/dL Assessment and Plan Assessment and plan (1) Preeclampsia in period: Code(s): O14.95 - Unspecified pre-eclampsia, complicating the puerperium Status: Acute Assessment and Plan: A: preeclampsia, responding well to magnesium sulfate. P: Plan to stop magnesium, continue labetalol. Home tonight or tomorrow.
--- NOTE | 2024-10-14 19:31 | PC.NURSE ---
Dr. Márquez at bedside, notified of blood pressure. Orders received to administer labetalol 200 mg three times a day.
--- NOTE | 2024-10-14 20:25 | PC.NURSE ---
Dr. Márquez at nurses station, orders received to discharge pt if blood pressure is under 160/110 with prescription for labetalol 200 mg three times a day, instructions to come to the office for a blood pressure check Monday, and when to return to the unit.
--- NOTE | 2024-10-14 21:25 | PC.NURSE ---
Pt discharged with prescription for labetalol 200 mg three times a day, instructions to come to the office for a blood pressure check Monday, and when to return to the unit.
--- NOTE | 2024-10-27 09:51 | PM.OBTRLD ---
OB - Triage/Final Diagnosis Visit Information Comments/Additional reasons for admission: I have assessed the risk for this patient, Bita Canchola, and determined that she would benefit from observation care. Evaluation Laboratory results: Laboratory Tests 10/13/24 10/13/24 10/14/24 17: 18:07 05:00 WBC 5.4 5.6 RBC 2.68 L Hgb 8.4 L Hct 24.9 L MCV 92.9 MCH 31.3 MCHC 33.7 RDW 12.6 Plt Count 229 D MPV 9.6 Immature Gran % (Auto) 1.1 H Neut % (Auto) 71.1 Lymph % (Auto) 17.6 L Archer % (Auto) 6.3 Eos % (Auto) 3.5 Baso % (Auto) 0.4 Lymph # (Auto) 0.95 Archer # (Auto) 0.3 Eos # (Auto) 0.2 Baso # (Auto) 0.0 Abs Immat Gran (auto) 0.06 H Absolute Neuts (auto) 3.8 Absolute Nucleated RBC 0.000 Nucleated RBC % 0.0 Sodium 138 Potassium 3.8 Chloride 107 Carbon Dioxide 23 Anion Gap 8 BUN 12 Creatinine 0.75 Estim Creat Clear Calc Not Reportable Estimated GFR > 60 Glucose 87 Uric Acid 5.5 Calcium 9.0 Total Bilirubin 0.4 AST 33 ALT 29 Alkaline Phosphatase 92 Total Protein 6.4 Albumin 3.5 Urine Color Yellow Urine Appearance Cloudy H Urine pH 6.5 Ur Specific [place]ram 1.024 Urine Protein 1+ H Urine Glucose (UA) Negative Urine Ketones 1+ H Ur Blood (Man) 1+ H Urine Nitrate Negative Urine Bilirubin Negative Urine Urobilinogen 1.0 Leukocyte Esterase Rfl Negative Urine RBC 6-10 H Urine WBC 0-5 Ur Squamous Epith Cells Occasional Urine Bacteria None seen Urine Casts 0-2 U Random Total Protein 63 Urine Creatinine 184.1 Protein/Creat Ratio 2 0.34 H 10/14/24 10/14/24 10/14/24 05:00 05:00 05:00 WBC 5.3 RBC 3.08 L 3.03 L Hgb 9.7 L 9.5 L Hct 28.5 L MCV MCH MCHC RDW Plt Count MPV Immature Gran % (Auto) Neut % (Auto) Lymph % (Auto) Archer % (Auto) Eos % (Auto) Baso % (Auto) Lymph # (Auto) Archer # (Auto) Eos # (Auto) Baso # (Auto) Abs Immat Gran (auto) Absolute Neuts (auto) Absolute Nucleated RBC Nucleated RBC % Sodium Potassium Chloride Carbon Dioxide Anion Gap BUN Creatinine Estim Creat Clear Calc Estimated GFR Glucose Uric Acid Calcium Total Bilirubin AST ALT Alkaline Phosphatase Total Protein Albumin Urine Color Urine Appearance Urine pH Ur Specific [place] Urine Protein Urine Glucose (UA) Urine Ketones Ur Blood (Man) Urine Nitrate Urine Bilirubin Urine Urobilinogen Leukocyte Esterase Rfl Urine RBC Urine WBC Ur Squamous Epith Cells Urine Bacteria Urine Casts U Random Total Protein Urine Creatinine Protein/Creat Ratio 2 10/14/24 10/14/24 10/14/24 05:00 05:00 05:00 WBC RBC Hgb Hct 28.2 L MCV 92.5 93.1 MCH 31.5 31.4 MCHC 34.0 RDW Plt Count MPV Immature Gran % (Auto) Neut % (Auto) Lymph % (Auto) Archer % (Auto) Eos % (Auto) Baso % (Auto) Lymph # (Auto) Archer # (Auto) Eos # (Auto) Baso # (Auto) Abs Immat Gran (auto) Absolute Neuts (auto) Absolute Nucleated RBC Nucleated RBC % Sodium Potassium Chloride Carbon Dioxide Anion Gap BUN Creatinine Estim Creat Clear Calc Estimated GFR Glucose Uric Acid Calcium Total Bilirubin AST ALT Alkaline Phosphatase Total Protein Albumin Urine Color Urine Appearance Urine pH Ur Specific [place] Urine Protein Urine Glucose (UA) Urine Ketones Ur Blood (Man) Urine Nitrate Urine Bilirubin Urine Urobilinogen Leukocyte Esterase Rfl Urine RBC Urine WBC Ur Squamous Epith Cells Urine Bacteria Urine Casts U Random Total Protein Urine Creatinine Protein/Creat Ratio 2 10/14/24 10/14/24 10/14/24 05:00 05:00 05:00 WBC RBC Hgb Hct MCV MCH MCHC 33.7 RDW 12.3 12.3 Plt Count 246 254 MPV 9.5 Immature Gran % (Auto) Neut % (Auto) Lymph % (Auto) Archer % (Auto) Eos % (Auto) Baso % (Auto) Lymph # (Auto) Archer # (Auto) Eos # (Auto) Baso # (Auto) Abs Immat Gran (auto) Absolute Neuts (auto) Absolute Nucleated RBC Nucleated RBC % Sodium Potassium Chloride Carbon Dioxide Anion Gap BUN Creatinine Estim Creat Clear Calc Estimated GFR Glucose Uric Acid Calcium Total Bilirubin AST ALT Alkaline Phosphatase Total Protein Albumin Urine Color Urine Appearance Urine pH Ur Specific [place] Urine Protein Urine Glucose (UA) Urine Ketones Ur Blood (Man) Urine Nitrate Urine Bilirubin Urine Urobilinogen Leukocyte Esterase Rfl Urine RBC Urine WBC Ur Squamous Epith Cells Urine Bacteria Urine Casts U Random Total Protein Urine Creatinine Protein/Creat Ratio 2 10/14/24 10/14/24 05:00 05:05 WBC RBC Hgb Hct MCV MCH MCHC RDW Plt Count MPV 9.6 Immature Gran % (Auto) 1.7 H Neut % (Auto) 67.0 Lymph % (Auto) 19.5 Archer % (Auto) 7.3 Eos % (Auto) 3.9 Baso % (Auto) 0.6 Lymph # (Auto) 1.04 Archer # (Auto) 0.4 Eos # (Auto) 0.2 Baso # (Auto) 0.0 Abs Immat Gran (auto) 0.09 H Absolute Neuts (auto) 3.6 Absolute Nucleated RBC 0.000 Nucleated RBC % 0.0 Sodium 136 L Potassium 3.7 Chloride 105 Carbon Dioxide 23 Anion Gap 8 BUN 6 L D Creatinine 0.56 L Estim Creat Clear Calc 149 Estimated GFR > 60 Glucose 108 Uric Acid 4.7 Calcium 8.0 L Total Bilirubin 0.4 AST 34 ALT 32 Alkaline Phosphatase 105 Total Protein 6.7 Albumin 3.7 Urine Color Urine Appearance Urine pH Ur Specific [place] Urine Protein Urine Glucose (UA) Urine Ketones Ur Blood (Man) Urine Nitrate Urine Bilirubin Urine Urobilinogen Leukocyte Esterase Rfl Urine RBC Urine WBC Ur Squamous Epith Cells Urine Bacteria Urine Casts U Random Total Protein Urine Creatinine Protein/Creat Ratio 2 Final Diagnosis (1) hypertension: Code(s): O16.5 - Unspecified maternal hypertension, complicating the puerperium Status: Acute
== END 2024-10-14 21:25 | disposition home or self-care (01) ==
LOC: ANHOBOP 21:22 → ANHOBPP 21:22
PROVIDERS: Admitting Provider Obstetrics & Gynecology; PCP Physician Assistant; Visit Provider Obstetrics & Gynecology
DX: O16.5 Unspecified maternal hypertension, complicating the puerperium (principal); O14.95 Unspecified pre-eclampsia, complicating the puerperium; O99.285 Endocrine, nutritional and metabolic diseases complicating the puerperium; E03.9 Hypothyroidism, unspecified; Z79.899 Other long term (current) drug therapy
CPT/HCPCS: 36415; 80053; 81001; 82570; 84156; 84550; 85025; 85027; 96365; 96366; 96375; A9270; G0378; G0379; J2405; J2765; J3475; J7120